=== PATIENT | male | born 1955 | race Caucasian/White ===

== ENCOUNTER 2016-08-22 14:36 | Emergency (ER) | payer BC, MEDICAID, OTHER ==
--- NOTE | 2016-08-22 14:49 | ER Document Report ---
ED Medical Screen (RME) - General Chief Complaint: Back Pain Stated Complaint: BACK PAIN Notes: pain that started that night. complaints of pain in his lower back, left flank as well and his right fingers with tingling. back surgery within the year history of kidney stones, denies any urinary symptoms or hematuria I have greeted and performed a rapid initial assessment of this patient. A comprehensive ED assessment and evaluation of the patient, analysis of test results and completion of the medical decision making process will be conducted by additional ED providers. Physical Exam - Vital signs Vitals: Temp Pulse Resp BP Pulse Ox 97.9 F 66 16 152/73 H 99 08/22/16 14:43 08/22/16 14:43 08/22/16 14:43 08/22/16 14:43 08/22/16 14:43 Course - Vital Signs Vital signs: Temp Pulse Resp BP Pulse Ox 97.9 F 66 16 152/73 H 99 08/22/16 14:43 08/22/16 14:43 08/22/16 14:43 08/22/16 14:43 08/22/16 14:43
[2016-08-22 15:37] LABS: APPEARANCE,URINE CLEAR; BILIRUBIN,URINE NEGATIVE (NEGATIVE); GLUCOSE, URINE NEGATIVE (NEGATIVE); KETONES,URINE NEGATIVE (NEGATIVE); LEUKOCYTE ESTERASE,URINE NEGATIVE (NEGATIVE); NITRITE,URINE NEGATIVE (NEGATIVE); PROTEIN,URINE NEGATIVE (NEGATIVE); URINE SPECIFIC GRAVITY 1.015; UROBILINOGEN,URINE NEGATIVE mg/dL (<2.0)
--- NOTE | 2016-08-22 18:20 | ER Document Report ---
ED Neck/Back Problem - General Mode of Arrival: Ambulatory Information source: Patient TRAVEL OUTSIDE OF THE [place] IN LAST 30 DAYS: No - HPI Patient complains to provider of: Pain, Lower back Onset: Yesterday Onset: Sudden Timing: Still present Associated symptoms: None - General Chief Complaint: Back Pain Stated Complaint: BACK PAIN Notes: Patient is a 61-year-old male presenting to the emergency department chief complaint lower back pain. Patient recently moved to town and is looking for a primary care provider. Patient states that he had metal plates placed in his back since last year and has a bad hip that needs to be operated on. Patient states that when he rolled over last night " It felt like a soft ball was stabbing him in his back." Patient states that he has recently been carrying around crank shafts. Patient also states the pain is reproducible when he lifts his leg. (INNA MELENDEZ) - Related Data Allergies/Adverse Reactions: tetanus toxoid, adsorbed Allergy (Verified 08/22/16 14:50) Past Medical History - General Information source: Patient - Social History Smoking Status: Never Smoker Chew tobacco use (# tins/day): No Frequency of alcohol use: None Drug Abuse: None Family History: Reviewed & Not Pertinent Patient has suicidal ideation: No Patient has homicidal ideation: No Renal/ Medical History: Denies: Hx Peritoneal Dialysis Past Surgical History: Reports: Hx Orthopedic Surgery - Back surgery 2016 Review of Systems - Review of Systems Constitutional: No symptoms reported EENT: No symptoms reported Cardiovascular: No symptoms reported Respiratory: No symptoms reported Gastrointestinal: No symptoms reported Genitourinary: No symptoms reported Male Genitourinary: No symptoms reported Musculoskeletal: See HPI, Back pain Skin: No symptoms reported Hematologic/Lymphatic: No symptoms reported Neurological/Psychological: No symptoms reported -: Yes All other systems reviewed and negative Physical Exam - General General appearance: Appears well, Alert - HEENT Head: Normocephalic, Atraumatic Eyes: Normal Pupils: PERRL - Respiratory Respiratory status: No respiratory distress Chest status: Nontender Breath sounds: Normal Chest palpation: Normal - Cardiovascular Rhythm: Regular Heart sounds: Normal auscultation Murmur: No - Abdominal Inspection: Normal Distension: No distension Bowel sounds: Normal Tenderness: Nontender Organomegaly: No organomegaly - Back Back: Tender - Tenderness to palpation over left flank muscles. Pain reproducable when patient lifts left leg. - Extremities General upper extremity: Normal inspection General lower extremity: Normal inspection - Neurological Neuro grossly intact: Yes Cognition: Normal Orientation: AAOx4 Rayne Coma Scale Eye Opening: Spontaneous Rayne Coma Scale Verbal: Oriented [place] Coma Scale Motor: Obeys Commands Rayne Coma Scale Total: 15 Speech: Normal - Psychological Associated symptoms: Normal affect, Normal mood - Skin Skin Temperature: Warm Skin Moisture: Dry Skin Color: Normal - Vital signs Vitals: Temp Pulse Resp BP Pulse Ox 97.9 F 66 16 152/73 H 99 08/22/16 14:43 08/22/16 14:43 08/22/16 14:43 08/22/16 14:43 08/22/16 14:43 (SUKHDEV ANTONIO) (INNA MELENDEZ) Course - Re-evaluation Re-evalutation: 08/22/16 18:30 The patient has a history of chronic back pain. He had a fusion of L3-S1 over a year ago. He had been in pain management and [facility], and had been put on [place] patches in March. He states that made him feel bad so he quit taking them. There is no evidence of prescriptions being filled since then. He states in the past he could take one [place] and it would last him all day with pain relief. He also has known kidney stones. He has been moving this area recently, and has been moving items such as crank shafts. Last night he had severe pain in his left flank region, thinking it might be a kidney stone. His urine has 1 white blood cell and 3 red blood cells. His exam shows the pain to be in the left vertebral spinal muscles just below the inferior ribs. He does note that when he lifts his left leg up it causes a sharp pain in the region of his discomfort. He has been taking Zanaflex at home for muscle relaxation, and states it caused him to sleep all night but did not help his pain. He did get a Valium from her friend yesterday. He states Flexeril makes him angry and causes him to throw coffee cups, etc. (SUKHDEV ANTONIO) - Vital Signs Vital signs: Temp Pulse Resp BP Pulse Ox 97.9 F 69 20 142/67 H 97 08/22/16 14:43 08/22/16 18:39 08/22/16 18:39 08/22/16 18:39 08/22/16 18:39 (SUKHDEV ANTONIO) (INNA MELENDEZ) - Laboratory Laboratory results interpreted by me: 08/22/16 15:00 Urine Blood SMALL H (SUKHDEV ANTONIO) (INNA MELENDEZ) Discharge - Discharge Clinical Impression: Muscle strain, Left flank pain Additional Instructions: Muscle Strain: You have strained a muscle. This often occurs with strenuous exertion, or during an injury that suddenly stretches the muscle. The seriousness of a strain varies. Some strains heal within days, others cause problems for months. X-rays cannot show a muscle strain. X-rays are taken only if symptoms suggest that a fracture could be present. The usual treatment of a muscle strain is rest and moist heat. The muscle can be used again once pain subsides. Severe strains require a special exercise and stretching program to prevent permanent stiffness and disability. Your doctor will advise you if this will be necessary. Call the doctor immediately if pain or swelling becomes severe, or if numbness or discoloration develop. TAKE THE PAIN MEDICATION PRESCRIBED. ADD MOTRIN OR ALEVE. TRY MOIST HEAT. REST. AVOID ACTIVITY THAT MAKES THE AREA HURT MORE. FOLLOW UP WITH A LOCAL MEDICAL DOCTOR FOR PRIMARY CARE AND PAIN MANAGEMENT. Prescriptions: Hydrocodone/Acetaminophen [[place] 5-325 mg Tablet] 1 tab PO Q6 #15 tablet Scribe Attestation: 08/22/16 18:29 I personally performed the services described in the documentation, reviewed and edited the documentation which was dictated to the scribe in my presence, and it accurately records my words and actions. (SUKHDEV ANTONIO) Scribe Documentation - Scribe Written by Mookie:: Inna Melendez 08/22/2016 1820 acting as scribe for :: Carmela
[2016-08-22 18:40] VITALS: BP 142/67
== END 2016-08-22 18:40 | disposition home or self-care (01) ==
LOC: ER 14:36
DX: R10.9 Unspecified abdominal pain (principal); Z98.1 Arthrodesis status; Z88.7 Allergy status to serum and vaccine
CPT/HCPCS: 72110; 81001; 87086; 99283

== ENCOUNTER 2017-03-23 13:26 | Emergency (ER) | payer SELFPAY ==
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
--- NOTE | 2017-03-23 14:44 | RADIOLOGY REPORT (SQ) ---
EXAM DESCRIPTION: SHOULDER LEFT 2 OR MORE VIEWS COMPLETED DATE/TIME: 03/23/2017 2:12 pm REASON FOR STUDY: left shoulder pain COMPARISON: None. NUMBER OF VIEWS: Three views. TECHNIQUE: Internal rotation, external rotation, and Y view images acquired of the left shoulder. LIMITATIONS: None. FINDINGS: MINERALIZATION: Normal. BONES: No acute fracture or dislocation. No worrisome bone lesions. JOINTS: No dislocation. VISUALIZED LUNGS AND RIBS: No pneumothorax. No rib fracture. SOFT TISSUES: No radiopaque foreign body. OTHER: No other significant finding. IMPRESSION: NEGATIVE STUDY OF THE LEFT SHOULDER. NO RADIOGRAPHIC EVIDENCE OF ACUTE INJURY. TECHNICAL DOCUMENTATION: JOB ID: [id number]- All Rights Reserved
[2017-03-23 15:05] VITALS: BP 160/82
== END 2017-03-23 15:05 | disposition home or self-care (01) ==
LOC: ER 13:26
DX: M25.512 Pain in left shoulder (principal); W01.0XXA Fall on same level from slipping, tripping and stumbling without subsequent striking against object, initial encounter; F17.200 Nicotine dependence, unspecified, uncomplicated
CPT/HCPCS: 99283

== ENCOUNTER 2018-01-25 14:48 | Emergency (ER) | payer MEDICARE, OTHER ==
[2018-01-25 14:56] VITALS: BP 146/66
[2018-01-25] MEDS ORDERED: CLINDAMYCIN HCL 150 MG CAPSULE PO ONE (18:49)
--- NOTE | 2018-01-25 18:56 | ER Document Report ---
ED General - General Chief Complaint: Skin Problem Stated Complaint: LEFT CALF AND ANKLE PAIN Time Seen by Provider: 01/25/18 18:22 TRAVEL OUTSIDE OF THE [place] IN LAST 30 DAYS: No - HPI Patient complains to provider of: Cellulitis Notes: Patient coming in for evaluation cellulitis. Patient states ongoing for approximately a weeks not been any antibiotics in the last 2 3 weeks. Patient states no known injury. Patient states similar to say last in the past which cleared up with antibiotics. Patient denies any fever chills nausea vomiting diarrhea. Patient has obvious redness from mid braswell down to the ankle of the left lower extremity - Related Data Allergies/Adverse Reactions: tetanus toxoid, adsorbed Allergy (Verified 01/25/18 14:49) Past Medical History - Social History Smoking Status: Current Every Day Smoker Frequency of alcohol use: None Drug Abuse: Marijuana Family History: Reviewed & Not Pertinent Patient has suicidal ideation: No Patient has homicidal ideation: No - Past Medical History Cardiac Medical History: Reports: Hx Hypertension Endocrine Medical History: Reports: Hx Diabetes Mellitus Type 2 Renal/ Medical History: Reports: Hx Kidney Stones. Denies: Hx Peritoneal Dialysis Past Surgical History: Reports: Hx Orthopedic Surgery - Back surgery 2016 - Immunizations Hx Diphtheria, Pertussis, Tetanus Vaccination: No Review of Systems - Review of Systems Constitutional: No symptoms reported EENT: No symptoms reported Cardiovascular: No symptoms reported Respiratory: No symptoms reported Gastrointestinal: No symptoms reported Genitourinary: No symptoms reported Male Genitourinary: No symptoms reported Musculoskeletal: No symptoms reported Skin: Other - I cellulitis Hematologic/Lymphatic: No symptoms reported Neurological/Psychological: No symptoms reported Physical Exam - Vital signs Vitals: Temp Pulse Resp BP Pulse Ox 98.8 F 92 18 146/66 H 97 01/25/18 14:55 01/25/18 14:55 01/25/18 14:55 01/25/18 14:55 01/25/18 14:55 Interpretation: Normal - General General appearance: Appears well, Alert - HEENT Head: Normocephalic, Atraumatic Eyes: Normal Pupils: PERRL - Respiratory Respiratory status: No respiratory distress Chest status: Nontender Breath sounds: Normal Chest palpation: Normal - Cardiovascular Rhythm: Regular Heart sounds: Normal auscultation Murmur: No - Abdominal Inspection: Normal Distension: No distension Bowel sounds: Normal Tenderness: Nontender Organomegaly: No organomegaly - Back Back: Normal, Nontender - Extremities General upper extremity: Normal inspection, Nontender, Normal color, Normal ROM , Normal temperature General lower extremity: Nontender, Normal color, Normal ROM, Normal temperature , Normal weight bearing. No: Normal inspection - Patient with erythema and warmth from the mid calf down to the ankle most on the anterior bras[place]. Patient has capillary refill and pulses distal to the erythema. No signs of obvious injury or abscess formation of the left lower extremity. Right extremity unaffected, Matthew's sign - Neurological Neuro grossly intact: Yes Cognition: Normal Orientation: AAOx4 Rayne Coma Scale Eye Opening: Spontaneous [place] Coma Scale Verbal: Oriented [place] Coma Scale Motor: Obeys Commands [place] Coma Scale Total: 15 Speech: Normal Motor strength normal: LUE, RUE, LLE, RLE Sensory: Normal - Psychological Associated symptoms: Normal affect, Normal mood - Skin Skin Temperature: Warm Skin Moisture: Dry Skin Color: Normal Course - Re-evaluation Re-evalutation: 01/25/18 23:30 1 on presentation is consistent with cellulitis. Patient had blood cultures drawn and was started on clindamycin. Patient also is concerned about his chronic pain and other issues as stated patient will have a follow-up primary care physician gave the patient's information to our social service coordinator to follow-up with. Patient agrees with plan and agrees discharge home - Vital Signs Vital signs: Temp Pulse Resp BP Pulse Ox 98.8 F 92 18 146/66 H 97 01/25/18 14:55 01/25/18 14:55 01/25/18 14:55 01/25/18 14:55 01/25/18 14:55 Discharge - Discharge Clinical Impression: Cellulitis Qualifiers: Site of cellulitis: unspecified site Qualified Code(s): L03.90 - Cellulitis, unspecified Condition: Good Disposition: HOME, SELF-CARE Instructions: Cellulitis ([facility]) Additional Instructions: Your physical examination is consistent with cellulitis of the left lower extremity. Please take antibiotics as prescribed. I will have our social service coordinator contact you so that we can establish you follow-up for further evaluation. Please take all antibiotics. We recommend taking Tylenol Motrin for pain control. Prescriptions: Clindamycin HCl [Cleocin 300 mg Capsule] 300 mg PO Q6 7 Days #28 capsule Ibuprofen [Motrin 600 Mg Tablet] 600 mg PO TID #15 tablet
[2018-01-25] MEDS ORDERED: IBUPROFEN 600 MG TABLET PO ONE (19:03)
== END 2018-01-25 19:27 | disposition home or self-care (01) ==
LOC: ER 14:48
DX: L03.116 Cellulitis of left lower limb (principal); M79.605 Pain in left leg; M25.572 Pain in left ankle and joints of left foot; F17.200 Nicotine dependence, unspecified, uncomplicated; E11.9 Type 2 diabetes mellitus without complications; I10 Essential (primary) hypertension
CPT/HCPCS: 99283; 36415; 87040; A9270 ×2

== ENCOUNTER 2018-01-28 15:20 | Emergency (ER) | payer MEDICARE, MEDICAID ==
[2018-01-28 15:26] VITALS: BP 127/68
--- NOTE | 2018-01-28 16:06 | ER Document Report ---
HPI - HPI Patient complains to provider of: Pain and increased redness to his left calf Onset: Other - Patient has had cellulitis off and on about 3 weeks Onset/Duration: Gradual Quality of pain: Achy Severity: Moderate Pain Level: 2 Context: Redness and pain to the left calf. 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 He states he has been on antibiotics now for several weeks. He came in to the emergency room again on 01 25 and got started on clindamycin. Associated Symptoms: Other - Redness and pain to the left calf Exacerbated by: Movement Relieved by: Denies Similar symptoms previously: Yes Recently seen / treated by doctor: Yes - ROS ROS below otherwise negative: Yes - CONSTITUTIONAL Constitutional: DENIES: Fever, Chills - EENT EENT: DENIES: Sore Throat, Ear Pain, Nasal Drainage-Clear, Nasal Drainage- Purulent, Congestion, Eye problems - NEURO Neurology: DENIES: Headache, Weakness, Vision blurred, Dizzinesss / Vertigo - CARDIOVASCULAR Cardiovascular: DENIES: Chest pain - RESPIRATORY Respiratory: DENIES: Trouble Breathing, Coughing - GASTROINTESTINAL Gastrointestinal: DENIES: Abdominal Pain - URINARY Urinary: DENIES: Dysuria - REPRODUCTIVE Reproductive: DENIES: :, Postmenopausal, Abnormal bleeding / discharge - MUSCULOSKELETAL Musculoskeletal: REPORTS: Extremity pain - Left calf - DERM Skin Color: [place] Skin Problems: None Past Medical History - General Information source: Patient - Social History Smoking Status: Current Every Day Smoker Cigarette use (# per day): Yes - 3-4 cigarettes a day Chew tobacco use (# tins/day): No Smoking Education Provided: Yes - 4 minutes Frequency of alcohol use: Social - Couple times a week Drug Abuse: Marijuana - Occasionally Family History: Reviewed & Not Pertinent Patient has suicidal ideation: No Patient has homicidal ideation: No - Past Medical History Cardiac Medical History: Reports: Hx Hypertension Pulmonary Medical History: Reports: None EENT Medical History: Reports: None Neurological Medical History: Reports: None Endocrine Medical History: Reports: None Renal/ Medical History: Reports: Hx Kidney Stones Malignancy Medical History: Reports None GI Medical History: Reports: None Musculoskeltal Medical History: Reports Hx Arthritis, Reports Hx Musculoskeletal Deformity, Reports Hx Musculoskeletal Trauma Skin Medical History: Reports Hx Cellulitis Psychiatric Medical History: Reports: None Traumatic Medical History: Reports: Hx Fractures - Fingers Infectious Medical History: Reports: None Past Surgical History: Reports: Hx Orthopedic Surgery - Back surgery 2016 steel plate and screws in his back - Immunizations Hx Diphtheria, Pertussis, Tetanus Vaccination: No Vertical Provider Document - CONSTITUTIONAL Agree With Documented VS: Yes Exam Limitations: No Limitations General Appearance: WD/WN, No Apparent Distress - INFECTION CONTROL TRAVEL OUTSIDE OF THE [place] IN LAST 30 DAYS: No - HEENT HEENT: Atraumatic, Normal ENT Exam, Normocephalic, PERRLA - NECK Neck: Normal Inspection - RESPIRATORY Respiratory: Breath Sounds Normal, No Respiratory Distress - CARDIOVASCULAR Cardiovascular: Regular Rate, Regular Rhythm, No Murmur - MUSCULOSKELETAL/EXTREMETIES Musculoskeletal/Extremeties: MAEW, FROM, Tender - Right calf erythema in this area much smaller area than last marking - NEURO Level of Consciousness: Awake, Alert, Appropriate Motor/Sensory: No Motor Deficit, No Sensory Deficit - DERM Integumentary: Warm, Dry, No Rash Course - Re-evaluation Re-evalutation: 01/28/18 16:28 Metal noted in the left lower extremity. The redness is actually much smaller than the last visit. Patient states he does have a little extra sting to this area but it is a redness is much smaller area. He is on clindamycin he was instructed to please take the medication as prescribed and to call the primary care doctor first thing on Monday to schedule follow-up. I will also send him home with a prescription for Keflex to ensure that he has proper coverage. Patient was instructed to use Epson salt soaks until he follows up with his doctor. - Vital Signs Vital signs: Temp Pulse Resp BP Pulse Ox 98.6 F 74 16 127/68 H 100 01/28/18 15:25 01/28/18 15:25 01/28/18 15:25 01/28/18 15:25 01/28/18 15:25 - Diagnostic Test Radiology reviewed: Image reviewed Discharge - Discharge Clinical Impression: Cellulitis Qualifiers: Site of cellulitis: extremity Site of cellulitis of extremity: lower extremity Laterality: left Qualified Code(s): L03.116 - Cellulitis of left lower limb Condition: Stable Disposition: HOME, SELF-CARE Additional Instructions: CELLULITIS: You have an infection of your skin and underlying soft tissues called cellulitis. This is due to bacteria, which can enter through any break in the skin, or even through an irritated hair follicle. Untreated, cellulitis will usually worsen. Antibiotics are required. Usually, warm packs or warm soaks, and elevation of the infected area are recommended. You should start getting better within 24 to 36 hours. Most infections respond quickly to the right medication. Follow-up care is important, however, to check for abscess (boil) formation, unsuspected foreign body, or resistant infection. If you develop fever, chills, or if the area of infection is becoming rapidly more swollen or painful, call the doctor at once. Cephalexin The antibiotic you've been prescribed is a member of the cephalosporin class. This type of antibiotic covers a wide variety of infections, including those of the skin, lungs, and urinary tract. It's useful for staph infections. This antibiotic is slightly similar to the penicillin family. In rare cases , a person who is allergic to penicillin will also be allergic to this medication. If you have had a severe allergic reaction to penicillin, and have not taken this antibiotic since that time, notify your doctor. Antibiotics which cover many germs ("broad spectrum" antibiotics) are more likely to cause diarrhea or "yeast" infections. Women prone to vaginal yeast problems may suffer an attack after taking this antibiotic. In infants, oral thrush (white spots "stuck" on the cheek) or yeast diaper rash may result. See your doctor if these problems occur. Call at once if you develop itching, hives , shortness of breath, or lightheadedness. CLINDAMYCIN: You have been given a prescription for the antibiotic clindamycin. It is often prescribed for infections in the mouth, such as dental infections or abscesses, and for skin infections due to MRSA. It's important that you take all the medication, unless instructed otherwise by your physician. Failure to complete the entire course can result in relapse of your condition. Common side effects of antibiotics include nausea, intestinal cramping, or diarrhea. Women may develop vaginal yeast infections, and babies can get yeast (thrush) in the mouth following the use of antibiotics. Contact your physician if you develop significant side effects from this medication. Allergy to this antibiotic can result in hives, wheezing, faintness, or itching. If symptoms of allergy occur, stop the medication and call the doctor. Epsom Salt Soaks Soak the wound area in a container of warm epsom salt water. If you can't get the wound area into a bucket or tanner, use a folded towel soaked in the epsom salt solution and apply to the area. Use clean hot tap water (about the temperature of a very warm bath), mixing in about one (1) teaspoon for every pint of water. Two gallon --> 16 teaspoons Epsom Salts One gallon --> 8 teaspoons Epsom Salts Two quarts --> 4 teaspoons Epsom Salts One quart --> 2 teaspoons Epsom Salts Soak the wound for about 20 minutes while gently moving it around in the water. Repeat this four (4) times a day. FOLLOW-UP CARE: If you have been referred to a physician for follow-up care, call the physician s office for an appointment as you were instructed or within the next two days. If you experience worsening or a significant change in your symptoms, notify the physician immediately or return to the Emergency Department at any time for re-evaluation. Prescriptions: Cephalexin Monohydrate [Keflex 500 mg Capsule] 500 mg PO Q6H 10 Days capsule Forms: Elevated Blood Pressure, Smoking Cessation Education Referrals: JOSE ALEJANDRO ESCOBAR MD [Primary Care Provider] - 01/29/18 (Called Dr. Escobar on the telephone Monday first thing and schedule a follow-up appointment.)
--- NOTE | 2018-01-28 16:39 | RADIOLOGY REPORT (SQ) ---
EXAM DESCRIPTION: TIBIA FIBULA LEFT COMPLETED DATE/TIME: 01/28/2018 4:31 pm REASON FOR STUDY: pain cellulitis possible metal COMPARISON: None. NUMBER OF VIEWS: Two views. TECHNIQUE: Two radiographic images acquired of the left tibia and fibula to include the knee and ank le in at least one projection. LIMITATIONS: None. FINDINGS: MINERALIZATION: Normal. BONES: No acute fracture or dislocation. No worrisome bone lesions. No significant osteophytes. SOFT TISSUES: No obvious swelling or foreign body. OTHER: No other significant finding. IMPRESSION: NEGATIVE STUDY OF THE LEFT TIBIA AND FIBULA. NO EXPLANATION FOR PAIN. TECHNICAL DOCUMENTATION: JOB ID: [id number] [employer]- All Rights Reserved Reading location - IP/workstation name: [email or web address]
== END 2018-01-28 16:42 | disposition home or self-care (01) ==
LOC: ER 15:20
DX: L03.116 Cellulitis of left lower limb (principal); M79.662 Pain in left lower leg; F17.210 Nicotine dependence, cigarettes, uncomplicated
CPT/HCPCS: 99283

== ENCOUNTER → 2018-01-30 | Outpatient (CLI) | payer MEDICARE, MEDICAID ==
--- NOTE | 2018-01-31 16:57 | XCELERA REPORT ---
[address] [address] Lower Extremity Venous Evaluation Name: TAMIKA GILLIAM Age: 63 yrs Gender: Male : 1955 Patient Status: Outpatient Patient Location: Study Date: 01/30/2018 02:03 PM Procedure: Color flow and duplex imaging of the veins of the left lower extremity as well as the right Common Femoral vein. Reason For Study: LLE PAIN Ordering Physician: DELMY COOPER Performed By: Yadira Motta Right Sided Venous Evaluation The right common femoral vein is fully compressible. Spontaneous and phasic flow is present in the right common femoral vein. Left Sided Venous Evaluation Normal vessel filling wall to wall, compression and augmentation as well as Colour flow down to the infrageniculate veins. Interpretation Summary No duplex evidence of DVT or obstruction in the left lower extremity nor in the right Common Femoral vein. : DELMY COOPER > Ruy Avila
== END ==
LOC: SP 13:35
PROVIDERS: ATTEND Physician Assistant
DX: M79.605 Pain in left leg (principal); L03.116 Cellulitis of left lower limb
CPT/HCPCS: 93971

== ENCOUNTER 2018-03-23 17:10 | Emergency (ER) | payer MEDICARE, MEDICAID ==
[2018-03-23 17:31] VITALS: BP 175/81
--- NOTE | 2018-03-23 19:12 | EKG REPORT ---
SEVERITY:- BORDERLINE ECG - SINUS RHYTHM BORDERLINE PROLONGED QT INTERVAL : Confirmed by: Jj Esteves MD 23-Mar-2018 19:11:42
== END 2018-03-23 17:41 | disposition left against medical advice (07) ==
LOC: ER 17:10
DX: Z53.21 Procedure and treatment not carried out due to patient leaving prior to being seen by health care provider (principal); R07.9 Chest pain, unspecified
CPT/HCPCS: 93005; 93010

== ENCOUNTER 2018-05-14 16:35 | Emergency (ER) | payer MEDICARE, MEDICAID ==
[2018-05-14 16:40] VITALS: BP 176/81
[2018-05-14] MEDS ORDERED: KETOROLAC TROMETHAMINE 60 MG/2 ML SDV IM ONE (17:34)
--- NOTE | 2018-05-14 18:55 | RADIOLOGY REPORT (SQ) ---
EXAM DESCRIPTION: HIP LEFT AP/LATERAL COMPLETED DATE/TIME: 05/14/2018 5:55 pm REASON FOR STUDY: left hip pain, injury COMPARISON: None. NUMBER OF VIEWS: Two views. TECHNIQUE: AP pelvis and additional frog-leg view of the left hip. LIMITATIONS: None. FINDINGS: MINERALIZATION: Normal. LEFT HIP: No fracture or dislocation. Degenerative joint changes with narrowing the joint space, sub chondral cysts, and marginal femoral head osteophytes. RIGHT HIP: No fracture or dislocation. No worrisome bone lesions. PUBIS AND ISCHIUM: No fracture. PELVIS: No fracture. SACRUM: No fracture or dislocation. No worrisome bone lesions. LOWER LUMBAR SPINE: Rods are present in the lumbar spine. SOFT TISSUES: No findings. OTHER: No other significant finding. IMPRESSION: Degenerative joint disease in the left hip. Surgical changes in the lumbar spine. TECHNICAL DOCUMENTATION: JOB ID: [id number] [email or web address]- All Rights Reserved Reading location - IP/workstation name: [email or web address]
[2018-05-14 19:46] LABS: APPEARANCE,URINE CLEAR; BILIRUBIN,URINE NEGATIVE (NEGATIVE); COLOR,URINE STRAW; GLUCOSE, URINE NEGATIVE (NEGATIVE); KETONES,URINE NEGATIVE (NEGATIVE); LEUKOCYTE ESTERASE,URINE NEGATIVE (NEGATIVE); NITRITE,URINE NEGATIVE (NEGATIVE); PROTEIN,URINE NEGATIVE (NEGATIVE); URINE SPECIFIC GRAVITY 1.005; UROBILINOGEN,URINE NEGATIVE mg/dL (<2.0)
--- NOTE | 2018-05-14 20:01 | ER Document Report ---
ED General - General Chief Complaint: Hip Pain Stated Complaint: LEFT HIP PAIN Time Seen by Provider: 05/14/18 17:24 Notes: Patient is a 63-year-old male that presents to the emergency department for chief complaint of left hip pain. Patient reports that he fell about 4 feet from a ladder several weeks ago, and has been having pain in his left hip since then, he was told he had arthritis in the past, but the pains been aggravating so he decided come to the emergency department. He currently rates his pain as a 5 out of 10, worse with ambulation, and moving the left hip, he is able to ambulate however, no radiation of pain, he has not taken any medications that have helped with the pain other than his prescribed Requip. He also felt a bulging on the left side, is concerned about developing another hernia, he states he has a hernia on the right, and that he thinks he had now has one on the left. With the pain radiating down into his testicles. He had some dysuria difficulty urinating, he reports a history of BPH. Past Medical History: Osteoarthritis Past Surgical History: Back surgery Social History: Admits to smoking cigarettes, denies alcohol or drug use Family History: Reviewed and noncontributory for presenting illness Allergies: Reviewed, see documented allergy list. REVIEW OF SYSTEMS: Unless otherwise stated in this report the patient's positive and negative responses for review of systems for constitutional, eyes, ENT, cardiovascular, respiratory, gastrointestinal, neurological, genitourinary, musculoskeletal, and integumentary systems and related systems to the presenting problem are either as stated in the HPI or were not pertinent or were negative for the symptoms and/or complaints related to the presenting medical problem. PHYSICAL EXAMINATION: Vital signs reviewed, nursing noted reviewed. GENERAL: Well-appearing, well-nourished and in no acute distress. HEAD: Atraumatic, normocephalic. EYES: Eyes appear normal, extraocular movements intact, sclera anicteric, conjunctiva are normal. ENT: nares patent, oropharynx clear without exudates. Moist mucous membranes. NECK: Normal range of motion, supple without lymphadenopathy LUNGS: Breath sounds clear to auscultation bilaterally and equal. No wheezes rales or rhonchi. HEART: Regular rate and rhythm without murmurs ABDOMEN: Soft, nontender, normoactive bowel sounds. No rebound, guarding, or rigidity. Patient does have 2 bilateral palpable inguinal hernias, with Valsalva, they do not enter the inguinal canal, there are palpable externally, they are reducible, only mild tenderness to palpate. EXTREMITIES: Nontender, good range of motion, no pitting or edema. Patient does have discomfort with range of motion of the left hip with internal and external rotation, no radiation down the leg. Good range of motion of the knee and ankle on the left, the rest of the patient's extremity exam is grossly unremarkable. NEUROLOGICAL: No focal neurological deficits. Moves all extremities spontaneously Motor and sensory grossly intact on exam. PSYCH: Normal mood, normal affect. SKIN: Warm, Dry, normal turgor, no rashes or lesions noted on exposed skin TRAVEL OUTSIDE OF THE [place] IN LAST 30 DAYS: No - Related Data Allergies/Adverse Reactions: tetanus toxoid, adsorbed Allergy (Verified 05/14/18 17:23) Past Medical History - Social History Smoking Status: Current Every Day Smoker Frequency of alcohol use: Heavy Drug Abuse: None Family History: Reviewed & Not Pertinent Patient has suicidal ideation: No Patient has homicidal ideation: No - Past Medical History Cardiac Medical History: Reports: Hx Hypertension Endocrine Medical History: Reports: Hx Diabetes Mellitus Type 2 Renal/ Medical History: Reports: Hx Kidney Stones. Denies: Hx Peritoneal Dialysis Musculoskeletal Medical History: Reports Hx Arthritis, Reports Hx Musculoskeletal Deformity, Reports Hx Musculoskeletal Trauma Skin Medical History: Reports Hx Cellulitis Traumatic Medical History: Reports: Hx Fractures - Fingers Past Surgical History: Reports: Hx Orthopedic Surgery - Back surgery 2016 - Immunizations Hx Diphtheria, Pertussis, Tetanus Vaccination: No Physical Exam - Vital signs Vitals: Temp Pulse Resp BP Pulse Ox 98.6 F 87 16 176/81 H 98 05/14/18 16:39 05/14/18 16:39 05/14/18 16:39 05/14/18 16:39 05/14/18 16:39 Course - Re-evaluation Re-evalutation: Patient seen and examined vital signs reviewed. Laboratory data and imaging were ordered as appropriate for the patient's presenting symptoms and complaint, with consideration of any critical or life threatening conditions that may be associated with their obtained history and exam as noted above. Patient was treated with Toradol Results were reviewed when available and demonstrated x-rays of the hip demonstrated severe ostial arthritis of the left hip, likely cause of the patient's pain The patient was re-evaluated and was improved Evaluation was most consistent with inguinal hernias, and osteoporosis of the hip, discussed the patient that he needs a follow-up with a surgeon regarding hernia, his urinalysis was negative, he is given a prescription for Mobic to take for his hip pain, advised no other NSAIDs, patient was agreeable. Results were discussed with the patient at this point, after careful consideration I feel that that patient can be discharged from the emergency department, the patient was educated treatments and reasons to return to the emergency department based on their presumed diagnosis as noted above, they were advised to followup with a primary care physician in 2-3 days. Patient was agreeable to plan of care. *Note is created using voice recognition software and may contain spelling, syntax or grammatical errors. Laboratory 05/14/18 19:24 Urine Color STRAW Urine Appearance CLEAR Urine pH 7.0 Ur Specific [place] 1.005 Urine Protein NEGATIVE Urine Glucose (UA) NEGATIVE Urine Ketones NEGATIVE Urine Blood NEGATIVE Urine Nitrite NEGATIVE Urine Bilirubin NEGATIVE Urine Urobilinogen NEGATIVE Ur Leukocyte Esterase NEGATIVE Urine WBC (Auto) 2 Urine Mucus (Auto) RARE Urine Ascorbic Acid NEGATIVE Hip X-Ray 05/14/18 17:34 IMPRESSION: Degenerative joint disease in the left hip. Surgical changes in the lumbar spine. - Vital Signs Vital signs: Temp Pulse Resp BP Pulse Ox 98.6 F 87 16 176/81 H 98 05/14/18 16:39 05/14/18 16:39 05/14/18 16:39 05/14/18 16:39 05/14/18 16:39 Discharge - Discharge Clinical Impression: Hip pain Qualifiers: Laterality: left Qualified Code(s): M25.552 - Pain in left hip Inguinal hernia Qualifiers: Obstruction and gangrene presence: without obstruction or gangrene Laterality: bilateral Recurrence: not specified as recurrent Qualified Code(s): K40.20 - Bilateral inguinal hernia, without obstruction or gangrene, not specified as recurrent Condition: Stable Disposition: HOME, SELF-CARE Instructions: Arthritis ([facility]), Hernia ([facility]) Additional Instructions: Please return to the emergency department if you have any worsening, or concern of your symptoms. Please return to the emergency department if you develop chest pain, difficulty breathing, severe abdominal pain, or ongoing vomiting. Please follow-up with your primary care physician in 2-3 days and any other recommended physicians. If prescribed, take all medications as directed. If you have any questions or concerns do not hesitate to return the emergency department for evaluation. Please take the prescribed medication as directed, do not take this medication with any other anti-inflammatory such as Motrin, ibuprofen, Advil, naproxen, or Aleve. Prescriptions: Meloxicam 15 mg PO DAILY #15 tablet Referrals: ROGER SIBLEY MD [ACTIVE STAFF] - Follow up tomorrow (primary care. ) VISHAL SHANE MD [ACTIVE STAFF] - Follow up tomorrow (surgery )
== END 2018-05-14 20:09 | disposition home or self-care (01) ==
LOC: ER 16:35
DX: M25.552 Pain in left hip (principal); K40.20 Bilateral inguinal hernia, without obstruction or gangrene, not specified as recurrent; F17.210 Nicotine dependence, cigarettes, uncomplicated; I10 Essential (primary) hypertension; E11.9 Type 2 diabetes mellitus without complications; Z87.442 Personal history of urinary calculi
CPT/HCPCS: 99283; 96372; 81001; 73502; J1885

== ENCOUNTER → 2018-06-11 | Outpatient (CLI) | payer MEDICARE, MEDICAID ==
--- NOTE | 2018-06-11 17:05 | RADIOLOGY REPORT (SQ) ---
EXAM DESCRIPTION: CHEST PA/LATERAL COMPLETED DATE/TIME: 06/11/2018 4:54 pm REASON FOR STUDY: PRE-OP COMPARISON: None. EXAM PARAMETERS: NUMBER OF VIEWS: two views TECHNIQUE: Digital Frontal and Lateral radiographic views of the chest acquired. RADIATION DOSE: NA LIMITATIONS: none FINDINGS: LUNGS AND PLEURA: No opacities, masses or pneumothorax. No pleural effusion. MEDIASTINUM AND HILAR STRUCTURES: No masses or contour abnormalities. HEART AND VASCULAR STRUCTURES: Heart normal size. No evidence for failure. BONES: No acute findings. HARDWARE: None in the chest. OTHER: No other significant finding. IMPRESSION: NO SIGNIFICANT RADIOGRAPHIC FINDING IN THE CHEST. TECHNICAL DOCUMENTATION: JOB ID: [id number] [employer]- All Rights Reserved Reading location - IP/workstation name: [email or web address]
[2018-06-11 17:52] LABS: HEMATOCRIT 48.9 % (37.9-51.0); HEMOGLOBIN 16.6 g/dL (13.5-17.0); MEAN CORPUSCULAR HEMOGLOBIN 31.3 pg (27.0-33.4); MEAN CORPUSCULAR VOLUME 92 fl (80-97); PLATELET COUNT 216 10^3/uL (150-450); RED BLOOD COUNT 5.32 10^6/uL (4.35-5.55); RED CELL DISTRIBUTION WIDTH 13.1 % (11.5-14.0); WHITE BLOOD COUNT 7.4 10^3/uL (4.0-10.5)
[2018-06-11 17:53] LABS: ANION GAP 10 (5-19); BLOOD UREA NITROGEN 16 mg/dL (7-20); CALCIUM 10.1 mg/dL (8.4-10.2); CARBON DIOXIDE 32 mmol/L (22-30); CHLORIDE 101 mmol/L (98-107); GLUCOSE 103 mg/dL (75-110); POTASSIUM 5.2 mmol/L (3.6-5.0); SODIUM 143.2 mmol/L (137-145)
--- NOTE | 2018-06-11 22:00 | EKG REPORT ---
SEVERITY:- ABNORMAL ECG - NONSPECIFIC INTRAVENTRICULAR CONDUCTION DELAY PROBABLE LEFT VENTRICULAR HYPERTROPHY SINUS RHYTHM WITH SHORT [place].NO DELTA WAVES. : Confirmed by: Kandy Berman MD 11-Jun-2018 21:59:33
== END ==
LOC: OD 15:24
PROVIDERS: ATTEND Surgery
DX: Z01.810 Encounter for preprocedural cardiovascular examination (principal); Z01.812 Encounter for preprocedural laboratory examination; Z01.818 Encounter for other preprocedural examination; K40.40 Unilateral inguinal hernia, with gangrene, not specified as recurrent; I10 Essential (primary) hypertension; N40.0 Benign prostatic hyperplasia without lower urinary tract symptoms; J45.909 Unspecified asthma, uncomplicated; F32.9 Major depressive disorder, single episode, unspecified; M19.90 Unspecified osteoarthritis, unspecified site; Z97.0 Presence of artificial eye
CPT/HCPCS: 36415; 71046; 80048; 85027; 93005; 93010

== ENCOUNTER → 2018-08-07 | Outpatient (CLI) | payer MEDICARE, MEDICAID ==
--- NOTE | 2018-08-07 15:54 | RADIOLOGY REPORT (SQ) ---
EXAM DESCRIPTION: CHEST PA/LATERAL COMPLETED DATE/TIME: 08/07/2018 3:34 pm REASON FOR STUDY: PRE-OP COMPARISON: 06/11/2018 EXAM PARAMETERS: NUMBER OF VIEWS: two views TECHNIQUE: Digital Frontal and Lateral radiographic views of the chest acquired. RADIATION DOSE: NA LIMITATIONS: none FINDINGS: LUNGS AND PLEURA: No opacities, masses or pneumothorax. No pleural effusion. MEDIASTINUM AND HILAR STRUCTURES: No masses or contour abnormalities. HEART AND VASCULAR STRUCTURES: Heart normal size. No evidence for failure. BONES: No acute findings. HARDWARE: None in the chest. OTHER: No other significant finding. IMPRESSION: NO SIGNIFICANT RADIOGRAPHIC FINDING IN THE CHEST. TECHNICAL DOCUMENTATION: JOB ID: [id number] [employer]- All Rights Reserved Reading location - IP/workstation name: [email or web address]
--- NOTE | 2018-08-07 19:31 | EKG REPORT ---
SEVERITY:- ABNORMAL ECG - SINUS RHYTHM RECOMMEND REPEAT EKG SECONDARY TO BASELINE WANDER. PREVENTS ACCURATE ASSESSMENT OF ST SEGMENTS : Confirmed by: Chavez Ga 07-Aug-2018 19:29:43
== END ==
LOC: OD 14:23
PROVIDERS: ATTEND Surgery
DX: Z01.818 Encounter for other preprocedural examination (principal); K40.20 Bilateral inguinal hernia, without obstruction or gangrene, not specified as recurrent; I10 Essential (primary) hypertension; N40.0 Benign prostatic hyperplasia without lower urinary tract symptoms; Z97.0 Presence of artificial eye; J32.9 Chronic sinusitis, unspecified; F32.9 Major depressive disorder, single episode, unspecified; G25.81 Restless legs syndrome; J45.909 Unspecified asthma, uncomplicated; M19.90 Unspecified osteoarthritis, unspecified site
CPT/HCPCS: 71046; 93005; 93010

== ENCOUNTER 2018-08-24 08:26 | Day surgery (SDC) | payer MEDICARE, MEDICAID ==
[2018-08-17 12:38] LABS: ANION GAP 6 (5-19); BLOOD UREA NITROGEN 16 mg/dL (7-20); CALCIUM 9.7 mg/dL (8.4-10.2); CARBON DIOXIDE 23 mmol/L (22-30); CHLORIDE 109 mmol/L (98-107); GLUCOSE 117 mg/dL (75-110); POTASSIUM 5.8 mmol/L (3.6-5.0); SODIUM 138.1 mmol/L (137-145)
[2018-08-17 14:33] LABS: HEMATOCRIT 44.5 % (37.9-51.0); HEMOGLOBIN 15.2 g/dL (13.5-17.0); MEAN CORPUSCULAR HEMOGLOBIN 31.5 pg (27.0-33.4); MEAN CORPUSCULAR HGB CONC 34.1 g/dL (32.0-36.0); MEAN CORPUSCULAR VOLUME 92 fl (80-97); PLATELET COUNT 221 10^3/uL (150-450); RED BLOOD COUNT 4.82 10^6/uL (4.35-5.55); RED CELL DISTRIBUTION WIDTH 13.3 % (11.5-14.0); WHITE BLOOD COUNT 5.9 10^3/uL (4.0-10.5)
--- NOTE | 2018-08-17 22:58 | EKG REPORT ---
SEVERITY:- OTHERWISE NORMAL ECG - SINUS RHYTHM ST ELEV, PROBABLE NORMAL EARLY REPOL PATTERN : Confirmed by: Kandy Berman MD 17-Aug-2018 22:58:17
[~2018-08-24 08:26] MED LIST: CEFAZOLIN 2 GM/D5W RTU 2 GM/50 ML RTUPB IV PRN; IBUPROFEN 800 MG in NORMAL SALINE 250 ML IV PRN; LACTATED RINGERS 1000 ML IV PRN; LIDOCAINE 0.5% INJ-PF (5 MG/ML) 50 ML SDV SUBCUT PRN
[2018-08-24] MEDS ORDERED: CEFAZOLIN 2 GM/D5W RTU 2 GM/50 ML RTUPB IV ONE (09:47)
[2018-08-24] MEDS ORDERED: KETOROLAC TROMETHAMINE 60 MG/2 ML SDV ONE (09:50)
[2018-08-24] MEDS ORDERED: ROCURONIUM BROMIDE INJ 50 MG/5 ML VIAL IV ONE (09:53)
[2018-08-24] MEDS ORDERED: SUCCINYLCHOLINE CHLORIDE INJ 200 MG/10 ML VIAL ONE (09:53)
[2018-08-24] MEDS ORDERED: BUPIVACAINE HCL 0.25 % INJ/PF (2.5 MG/1 ML) 30 ML VIAL ONE (09:55)
[2018-08-24] MEDS ORDERED: FAMOTIDINE INJ/PF 20 MG/2 ML SDV IV ONE (12:10)
[2018-08-24 12:29] LABS: URINE AMPHETAMINES SCREEN NEGATIVE; URINE BARBITURATES SCREEN NEGATIVE; URINE BENZODIAZEPINES SCREEN NEGATIVE; URINE COCAINE SCREEN NEGATIVE; URINE MARIJUANA (THC) SCREEN NEGATIVE; URINE METHADONE SCREEN NEGATIVE; URINE PHENCYCLIDINE SCREEN NEGATIVE
[2018-08-24] MEDS ORDERED: MIDAZOLAM 2 MG/2 ML INJ ONE (12:38)
[2018-08-24] MEDS ORDERED: LIDOCAINE 2% INJ-PF (20 MG/ML) 10 ML AMPUL ONE (12:38)
[2018-08-24] MEDS ORDERED: EPHEDRINE SULFATE INJ 50 MG/1 ML AMPULE ONE (12:38)
[2018-08-24] MEDS ORDERED: DEXAMETHASONE SOD PHOSPHATE INJ 4 MG/1 ML VIAL ONE (12:38)
[2018-08-24] MEDS ORDERED: FENTANYL CITRATE INJ/PF 250 MCG/5 ML AMPULE ONE (12:38)
[2018-08-24] MEDS ORDERED: ONDANSETRON HCL INJ/PF 4 MG/2 ML SDV ONE (12:38)
[2018-08-24] MEDS ORDERED: PROPOFOL INJ 200 MG/20 ML VIAL IV ONE (12:39)
[2018-08-24] MEDS ORDERED: ACETAMINOPHEN 1,000 MG/100 ML RTUPB IV ONE (12:39)
[2018-08-24] MEDS ORDERED: HYDROMORPHONE HCL INJ/PF 2 MG/ML AMPULE ONE ×2 (12:48→16:04)
[2018-08-24] MEDS ORDERED: PROMETHAZINE HCL INJ 25 MG/1 ML VIAL IV PRN ×2 (15:10)
[2018-08-24] MEDS ORDERED: DIPHENHYDRAMINE HCL 50 MG/ML VIAL IV PRN (15:10)
[2018-08-24] MEDS ORDERED: MORPHINE SULFATE 10 MG/ML INJ IV PRN (15:10)
[2018-08-24] MEDS ORDERED: FENTANYL CITRATE INJ/PF 100 MCG/2 ML AMPUL IV PRN ×3 (15:10)
[2018-08-24] MEDS ORDERED: MEPERIDINE HCL/PF INJ 25 MG/1 ML DISP.SYRIN IV PRN (15:10)
[2018-08-24] MEDS: FENTANYL CITRATE INJ/PF 100 MCG/2 ML AMPUL ONE ×2 (15:43→15:50)
--- NOTE | 2018-08-24 16:30 | Discharge Summary ---
Discharge Summary (SDC) - Discharge Final Diagnosis: Bilateral inguinal hernias. Date of Surgery: 08/24/18 Discharge Date: 08/24/18 Condition: Stable Treatment or Instructions: Discharge home. Diet as tolerated. Activity: No lifting greater than 10 pounds x 4 weeks. [place] 10/325 mg p.o. every 6 hours as needed for pain. Okay to shower in 48 hours. No tub baths or swimming pools times 2 weeks. Follow-up with me around the surgical clinic in 7-10 days. Referrals: JOSE ALEJANDRO ESCOBAR MD [Primary Care Provider] - Discharge Diet: As Tolerated Respiratory Treatments at Home: Deep Breathing/Coughing, Incentive Spirometer Discharge Activity: No Lifting Over 10 Pounds Home Care Assistance: None Needed Report the Following to Your Physician Immediately: Shortness of Breath, Nausea, Vomiting, Increase in Pain, Fever over 101 Degrees, Unusual Bleeding, Redness, Swelling, Warmth, Increased Soreness
--- NOTE | 2018-08-24 16:45 | Operative Report ---
Nonrecallable Operative Report DATE OF SURGERY: 08/24/18 PREOPERATIVE DIAGNOSIS: Bilateral inguinal hernias POSTOPERATIVE DIAGNOSIS: Bilateral direct inguinal hernias. OPERATION: Robot-assisted laparoscopic bilateral inguinal hernia repair with mesh. SURGEON: ANTONIO HORVATH [employer] UTILITY WORKER: TAMARA BAUGH ANESTHESIA: GA TISSUE REMOVED OR ALTERED: None COMPLICATIONS: None apparent ESTIMATED BLOOD LOSS: Minimal PROCEDURE: Drains/implants: Right and left large 3 DMax inguinal hernia mesh. Procedure in detail: After informed consent was obtained, the patient was brought into the operating room and laid in the supine position. The abdomen was prepped and draped in a normal sterile fashion. A supraumbilical incision was created with a 15 blade scalpel. Dissection was carried through the subcutaneous tissue using sharp and blunt means. The linea alba fascia was incised sharply, the abdomen was entered sharply. The balloon trocar was inserted, and pneumoperitoneum was achieved. 2 8 mm right and left lateral abdominal wall robotic trochars were placed under direct laparoscopic visualization. The robot was brought over the patient and docked appropriately. I then assumed my position at the surgeon's console. Dissection was begun in the right groin. A large direct inguinal hernia defect was identified. Dissection was begun approximately 2-3 cm superior to the inguinal hernia defect. A preperitoneal dissection was undertaken using sharp dissection, blunt dissection, and electrocautery. The large direct hernia sac was reduced. The peritoneum was freed from the cord structures, taking great care not to injure the cord structures. Once the space was created, a large right-sided 3 DMax inguinal hernia mesh was placed into the preperitoneal space. It was situated over the defect. It was sutured to the abdominal wall medially and superiorly using 2-0 Vicryl suture. Once this was completed, the defect was found to be adequately covered by the mesh. The peritoneum was then closed using 2-0 V lock suture in simple running fashion. Attention was then turned to the left groin. In similar fashion, an incision was created in the peritoneum approximately 2-3 cm superior to the large direct left inguinal hernia defect. Dissection was carried out using sharp dissection, blunt dissection, and electrocautery. The hernia sac was freed from the defect. The peritoneum was freed from the cord structures, taking great care not to injure the cord structures. The large left-sided 3 DMax inguinal hernia mesh was then placed into the preperitoneal space. It was sutured to the abdominal wall medially and superiorly. The mesh was found to cover the defect adequately. After this was confirmed, the peritoneum was closed using 2-0 V lock suture in simple running fashion. The repairs were found to be in good order, the robot was undocked, and the trochars were removed. Pneumoperitoneum was at this time relieved. The supraumbilical fascia was closed using 0 Vicryl suture in [id number] fashion. The overlying skin was closed using 4-0 Vicryl Rapide suture in subcuticular fashion. Dressings were fashioned and the procedure was concluded. All sponge, instrument, and needle counts were correct x2. Condition: Stable. Tamara Baugh PA-C was scrubbed and present for the procedure. She assisted with all portions of the procedure including placement of the trochars, docking the robot, exchanging of the robotic instruments, closure of the fascia, closure of the skin.
[2018-08-24] MEDS ORDERED: HYDROCODONE/ACETAMINOPHEN 10-325 MG TABLET ONE (16:50)
[2018-08-24 18:47] VITALS: BP 159/96
== END 2018-08-24 18:40 | disposition home or self-care (01) ==
LOC: OROUT 08:26
PROVIDERS: ATTEND Surgery
DX: K40.20 Bilateral inguinal hernia, without obstruction or gangrene, not specified as recurrent (principal); I10 Essential (primary) hypertension; J44.9 Chronic obstructive pulmonary disease, unspecified; N40.0 Benign prostatic hyperplasia without lower urinary tract symptoms; F17.210 Nicotine dependence, cigarettes, uncomplicated; Z79.899 Other long term (current) drug therapy; Z79.51 Long term (current) use of inhaled steroids
CPT/HCPCS: 49650; S2900; 36415; 80048; 80307; 840; 84132; 85027; 86850; 86900; 86901; 93005; 93010; C1781; J0131; J0330; J0690; J1100; J1170; J1741; J1885; J2250; J2405; J2704; J3010; J3490; J7050; S0028

== ENCOUNTER 2018-08-26 04:17 | Emergency (ER) | payer MEDICARE, MEDICAID ==
--- NOTE | 2018-08-26 05:51 | ER Document Report ---
ED Medical Screen (RME) - General Chief Complaint: Abdominal Distention Stated Complaint: POST OP PROBLEM Time Seen by Provider: 08/26/18 05:01 Primary Care Provider: JOSE ALEJANDRO ESCOBAR MD [Primary Care Provider] - Follow up as needed Mode of Arrival: Ambulatory Information source: Patient Notes: Patient is a 63-year-old male who presents the emergency department with a bdominal distention after having a hernia repair done 3 days ago. Patient reports it was done outpatient by Dr. Delgado. He denies any nausea, vomiting or diarrhea. Reports one normal bowel movement after the surgery. Reports he is not passing as much gas as usual. He states he has a normal appetite however he has been having increasing distention in his abdomen. Order was placed for an acute abdomen series. Exam: Multiple lap sites to abdomen, mild distention noted. I have greeted and performed a rapid initial assessment of this patient. A comprehensive ED assessment and evaluation of the patient, analysis of test results and completion of the medical decision making process will be conducted by additional ED providers. Dictation of this chart was performed using voice recognition software; therefore, there may be some unintended grammatical errors. TRAVEL OUTSIDE OF THE [place] IN LAST 30 DAYS: No - Related Data Allergies/Adverse Reactions: tetanus toxoid, adsorbed Allergy (Verified 08/24/18 10:27) Past Medical History - Past Medical History Cardiac Medical History: Reports: Hx Hypertension Denies: Hx Coronary Artery Disease, Hx Heart Attack Pulmonary Medical History: Reports: Hx Asthma Denies: Hx Bronchitis, Hx COPD, Hx Pneumonia Neurological Medical History: Denies: Hx Cerebrovascular Accident, Hx Seizures Endocrine Medical History: Reports: Hx Diabetes Mellitus Type 2 Renal/ Medical History: Reports: Hx Kidney Stones. Denies: Hx Peritoneal Dialysis Musculoskeltal Medical History: Reports Hx Arthritis, Reports Hx Musculoskeletal Deformity, Reports Hx Musculoskeletal Trauma Skin Medical History: Reports Hx Cellulitis Traumatic Medical History: Reports: Hx Fractures - Fingers Past Surgical History: Reports: Hx Orthopedic Surgery - Back surgery 2016 - Immunizations Hx Diphtheria, Pertussis, Tetanus Vaccination: No - ALLERGY TO TETANUS VACCINE History of Influenza Vaccine for 04/2017 - 09/2017 Season: Yes Influenza Administration Date for 04/2017 - 09/2017 Season: 04/23/18 Physical Exam - Vital signs Vitals: Temp Pulse Resp BP Pulse Ox 97.8 F 62 16 175/72 H 97 08/26/18 04:20 08/26/18 04:20 08/26/18 04:20 08/26/18 04:20 08/26/18 04:20 Course - Vital Signs Vital signs: Temp Pulse Resp BP Pulse Ox 97.8 F 62 16 175/72 H 97 08/26/18 04:20 08/26/18 04:20 08/26/18 04:20 08/26/18 04:20 08/26/18 04:20 Doctor's Discharge - Discharge Referrals: JOSE ALEJANDRO ESCOBAR MD [Primary Care Provider] - Follow up as needed
--- NOTE | 2018-08-26 06:10 | RADIOLOGY REPORT (SQ) ---
CLINICAL HISTORY: post op pain, eval for sbo vs constipation COMPARISON: None. TECHNIQUE: XR ABDOMEN SUPINE AND ERECT WITH CHEST (ABD ACUTE SERIES) 08/26/2018 5:02 AM MOBILITY MANAGER FINDINGS: There is large amount of stool throughout the colon. Extensive lower lumbar fusion was performed. There are no abnormal radiopaque foreign bodies or abnormal calcifications. Osseous structures are grossly unremarkable. There is right upper quadrant free air. The heart is normal in size. Lungs are clear. IMPRESSION: Constipation. Pneumoperitoneum. This is likely postoperative.
[2018-08-26] MEDS ORDERED: DOCUSATE SODIUM 100 MG CAPSULE PO ONE (06:58)
--- NOTE | 2018-08-26 06:58 | ER Document Report ---
ED General - General Chief Complaint: Abdominal Distention Stated Complaint: POST OP PROBLEM Time Seen by Provider: 08/26/18 05:01 Primary Care Provider: JOSE ALEJANDRO ESCOBAR MD [Primary Care Provider] - Follow up as needed Mode of Arrival: Ambulatory Notes: 63-year-old male to the emergency department for evaluation of abdominal bloating. Patient had surgery on Monday for bilateral inguinal hernia repair with Dr. Delgado. Denies any abdominal pain, fever, swelling, shortness of breath or other issues at this time. Passing gas. Has not had a bowel movement yet. No problems urinating. Patient states that he is worried that he feels a little more bloated and looks a little bloated around the surgical incision site but no active bleeding, fever, oozing or other issues. TRAVEL OUTSIDE OF THE [place] IN LAST 30 DAYS: No - HPI Onset: Just prior to arrival - Related Data Allergies/Adverse Reactions: tetanus toxoid, adsorbed Allergy (Verified 08/24/18 10:27) Past Medical History - General Information source: Patient - Social History Smoking Status: Current Every Day Smoker Frequency of alcohol use: None Drug Abuse: None Family History: Reviewed & Not Pertinent Patient has suicidal ideation: No Patient has homicidal ideation: No - Past Medical History Cardiac Medical History: Reports: Hx Hypertension Denies: Hx Coronary Artery Disease, Hx Heart Attack Pulmonary Medical History: Reports: Hx Asthma Denies: Hx Bronchitis, Hx COPD, Hx Pneumonia Neurological Medical History: Denies: Hx Cerebrovascular Accident, Hx Seizures Endocrine Medical History: Reports: Hx Diabetes Mellitus Type 2 Renal/ Medical History: Reports: Hx Kidney Stones. Denies: Hx Peritoneal Dialysis Musculoskeletal Medical History: Reports Hx Arthritis, Reports Hx Musculoskeletal Deformity, Reports Hx Musculoskeletal Trauma Skin Medical History: Reports Hx Cellulitis Traumatic Medical History: Reports: Hx Fractures - Fingers Past Surgical History: Reports: Hx Orthopedic Surgery - Back surgery 2016 - Immunizations Hx Diphtheria, Pertussis, Tetanus Vaccination: No - ALLERGY TO TETANUS VACCINE Hx Pneumococcal Vaccination: 04/23/18 Review of Systems - Review of Systems Notes: Constitutional: denies: Chills, Diaphoresis, Fever, Malaise, Weakness EENT: denies: Eye discharge, Blurred vision, Tearing, Double vision, Nose congestion, Nose discharge, Throat swelling, Mouth pain Cardiovascular: denies: Palpitations, Heart racing, Orthopnea, Dyspnea, Chest pain Respiratory: denies: Cough, Hurts to breathe, Wheezing, Shortness of breath Gastrointestinal: denies: Diarrhea, Nausea, Vomiting, Black stools, bright red blood in stool. Complaining of some postoperative swelling around the surgical incision site with some bloating and mild abdominal pain Genitourinary: denies: Burning, Dysuria, Discharge, Frequency, Flank pain, Hematuria Musculoskeletal: denies: Joint pain, Joint swelling, Muscle pain, Muscle stiffness, back pain Hematologic/Lymphatic: denies: Anemia, Easy bleeding, Easy bruising, Blood clots Neurological/Psychological: denies: Confusion, Dementia, Depression, Loss of consciousness Skin: No lesions, no masses, no skin breakdown, no abscesses Physical Exam - Vital signs Vitals: Temp Pulse Resp BP Pulse Ox 97.8 F 62 16 175/72 H 97 08/26/18 04:20 08/26/18 04:20 08/26/18 04:20 08/26/18 04:20 08/26/18 04:20 Interpretation: Normal - General General appearance: Appears well, Alert - HEENT Head: Normocephalic, Atraumatic Eyes: Normal Pupils: PERRL - Respiratory Respiratory status: No respiratory distress Chest status: Nontender Breath sounds: Normal Chest palpation: Normal - Cardiovascular Rhythm: Regular Heart sounds: Normal auscultation Murmur: No - Abdominal Inspection: Normal Distension: No distension Bowel sounds: Normal Tenderness: Nontender Organomegaly: No organomegaly Notes: Postoperative incision sites are clean dry and intact.. There is no signs of wound dehiscence. No signs of cellulitis. There is no significant distention. No guarding or rebound. - Back Back: Normal, Nontender - Extremities General upper extremity: Normal inspection, Nontender, Normal color, Normal ROM, Normal temperature General lower extremity: Normal inspection, Nontender, Normal color, Normal ROM, Normal temperature, Normal weight bearing. No: Matthew's sign - Neurological Neuro grossly intact: Yes Cognition: Normal Orientation: AAOx4 [place] Coma Scale Eye Opening: Spontaneous [place] Coma Scale Verbal: Oriented [place] Coma Scale Motor: Obeys Commands [place] Coma Scale Total: 15 Speech: Normal Motor strength normal: LUE, RUE, LLE, RLE Sensory: Normal - Psychological Associated symptoms: Normal affect, Normal mood - Skin Skin Temperature: Warm Skin Moisture: Dry Skin Color: Normal Course - Re-evaluation Re-evalutation: 08/26/18 06:56 Due to the fact the patient is only 36 hours postop. Patient has no fever. Not hypotensive. Denies any significant abdominal pain. Feels a little bloated but he is passing gas. X-ray shows a pneumo peritoneum however patient had laparoscopic surgery and this is consistent with what you would see that this time after surgery. At this time Dr. Mejias feels patient is comfortable to go home. I do 2. Will DC in stable condition. - Vital Signs Vital signs: Temp Pulse Resp BP Pulse Ox 97.8 F 62 16 175/72 H 97 08/26/18 04:20 08/26/18 04:20 08/26/18 04:20 08/26/18 04:20 08/26/18 04:20 Discharge - Discharge Clinical Impression: Postoperative pain, Surgical pneumoperitoneum Condition: Good Disposition: HOME, SELF-CARE Instructions: Abdominal Pain ([facility]) Additional Instructions: Most likely your symptoms are consistent with your postoperative normal course of recovery. I recommend taking Colace (docusate sodium) 1 tab in the morning and 1 tab in the evening. Drink plenty of water. You may also use MiraLAX. In the event that you develop a fever, worsening abdominal pain, worsening bloating, vomiting or other concerns please return for repeat evaluation. Follow-up with Dr. Delgado as instructed. Referrals: JOSE ALEJANDRO ESCOBAR MD [Primary Care Provider] - Follow up as needed
[2018-08-26 07:17] VITALS: BP 182/78
== END 2018-08-26 07:16 | disposition home or self-care (01) ==
LOC: ER 04:17
DX: G89.18 Other acute postprocedural pain (principal); R14.0 Abdominal distension (gaseous); F17.200 Nicotine dependence, unspecified, uncomplicated; I10 Essential (primary) hypertension; Z87.442 Personal history of urinary calculi
CPT/HCPCS: 99283; 74022; A9270

== ENCOUNTER 2018-09-05 23:11 | Emergency (ER) | payer MEDICARE, MEDICAID ==
[2018-09-05 23:31] VITALS: BP 172/73
== END 2018-09-06 01:15 | disposition left against medical advice (07) ==
LOC: ER 23:11
DX: Z53.21 Procedure and treatment not carried out due to patient leaving prior to being seen by health care provider (principal); R10.30 Lower abdominal pain, unspecified

== ENCOUNTER 2018-11-09 14:57 | Emergency (ER) | payer MEDICARE, MEDICAID ==
--- NOTE | 2018-11-09 15:24 | ER Document Report ---
ED Medical Screen (RME) - General Chief Complaint: Skin Problem Stated Complaint: POSSIBLE INFECTION Time Seen by Provider: 11/09/18 15:14 Primary Care Provider: JOSE ALEJANDRO ESCOBAR MD [Primary Care Provider] - Follow up as needed Mode of Arrival: Ambulatory Information source: Patient Notes: Patient is a 63-year-old male with past medical history of hypertension present ing to the emergency department with right arm pain and swelling. Patient reports approximately 1 week ago he had a laceration to thumb and his right wrist area. He states that he pulled a piece of metal out of the laceration to the right wrist. He states that he put superglue on the laceration of his thumb. He now presents with swelling, erythema and pain to the area. Patient reports he is allergic to the tetanus vaccine. He has not a diabetic. He is right-hand dominant. He denies any fevers or chills. Exam: Strong radial pulse, cap refill less than 3 seconds. Erythema and swelling noted in hand and wrist, erythema streaks up his arm to mid forearm. I have greeted and performed a rapid initial assessment of this patient. A comprehensive ED assessment and evaluation of the patient, analysis of test results and completion of the medical decision making process will be conducted by additional ED providers. Dictation of this chart was performed using voice recognition software; therefore, there may be some unintended grammatical errors. TRAVEL OUTSIDE OF THE [place] IN LAST 30 DAYS: No - Related Data Allergies/Adverse Reactions: tetanus toxoid, adsorbed Allergy (Verified 11/09/18 14:58) Past Medical History - Social History Frequency of alcohol use: Social Drug Abuse: None - Past Medical History Cardiac Medical History: Reports: Hx Hypertension Denies: Hx Coronary Artery Disease, Hx Heart Attack Pulmonary Medical History: Reports: Hx Asthma Denies: Hx Bronchitis, Hx COPD, Hx Pneumonia Neurological Medical History: Denies: Hx Cerebrovascular Accident, Hx Seizures Endocrine Medical History: Reports: Hx Diabetes Mellitus Type 2 Renal/ Medical History: Reports: Hx Kidney Stones. Denies: Hx Peritoneal Dialysis Musculoskeltal Medical History: Reports Hx Arthritis, Reports Hx Musculoskeletal Deformity, Reports Hx Musculoskeletal Trauma Skin Medical History: Reports Hx Cellulitis Traumatic Medical History: Reports: Hx Fractures - Fingers Past Surgical History: Reports: Hx Orthopedic Surgery - Back surgery 2016 - Immunizations Hx Diphtheria, Pertussis, Tetanus Vaccination: No - ALLERGY TO TETANUS VACCINE History of Influenza Vaccine for 04/2017 - 09/2017 Season: Yes Influenza Administration Date for 04/2017 - 09/2017 Season: 04/23/18 Physical Exam - Vital signs Vitals: Temp Pulse Resp BP Pulse Ox 98.3 F 79 20 180/70 H 99 11/09/18 15:01 11/09/18 15:01 11/09/18 15:01 11/09/18 15:01 11/09/18 15:01 Course - Vital Signs Vital signs: Temp Pulse Resp BP Pulse Ox 98.3 F 79 20 180/70 H 99 11/09/18 15:01 11/09/18 15:01 11/09/18 15:01 11/09/18 15:01 11/09/18 15:01 Doctor's Discharge - Discharge Referrals: JOSE ALEJANDRO ESCOBAR MD [Primary Care Provider] - Follow up as needed
--- NOTE | 2018-11-09 16:02 | RADIOLOGY REPORT (SQ) ---
EXAM DESCRIPTION: HAND RIGHT 3 VIEWS; WRIST RIGHT 3 VIEWS COMPLETED DATE/TIME: 11/09/2018 3:51 pm REASON FOR STUDY: eval for retained FB COMPARISON: None. EXAM PARAMETERS: NUMBER OF VIEWS: Three views. TECHNIQUE: AP, lateral and oblique radiographic images acquired of the right hand. LIMITATIONS: None. FINDINGS: MINERALIZATION: Normal. BONES: No acute fracture or dislocation. No worrisome bone lesions. JOINTS: No effusions. SOFT TISSUES: Diffuse soft tissue swelling. No foreign body. OTHER: No other significant finding. IMPRESSION: No fracture or dislocation of the right hand or wrist. There is soft tissue swelling wi thout evidence of retained radiopaque foreign body. TECHNICAL DOCUMENTATION: JOB ID: [id number] [employer]- All Rights Reserved Reading location - IP/workstation name: [email or web address]
--- NOTE | 2018-11-09 16:02 | RADIOLOGY REPORT (SQ) ---
EXAM DESCRIPTION: HAND RIGHT 3 VIEWS; WRIST RIGHT 3 VIEWS COMPLETED DATE/TIME: 11/09/2018 3:51 pm REASON FOR STUDY: eval for retained FB COMPARISON: None. EXAM PARAMETERS: NUMBER OF VIEWS: Three views. TECHNIQUE: AP, lateral and oblique radiographic images acquired of the right hand. LIMITATIONS: None. FINDINGS: MINERALIZATION: Normal. BONES: No acute fracture or dislocation. No worrisome bone lesions. JOINTS: No effusions. SOFT TISSUES: Diffuse soft tissue swelling. No foreign body. OTHER: No other significant finding. IMPRESSION: No fracture or dislocation of the right hand or wrist. There is soft tissue swelling wi thout evidence of retained radiopaque foreign body. TECHNICAL DOCUMENTATION: JOB ID: [id number] [employer]- All Rights Reserved Reading location - IP/workstation name: [email or web address]
[2018-11-09] MEDS ORDERED: CLINDAMYCIN 600 MG/D5W RTU 600 MG/50 ML RTUPB IV ONE (16:41)
[2018-11-09 17:03] LABS: ABSOLUTE EOSINOPHILS # (AUTO) 0.1 10^3/uL (0.0-0.6); ABSOLUTE LYMPHOCYTES (AUTO) 2.7 10^3/uL (0.5-4.7); ABSOLUTE NEUT (AUTO) 6.9 10^3/uL (1.7-8.2); BASOPHILS % (AUTO) 0.3 % (0-2); EOSINOPHILS % (AUTO) 0.7 % (0-6); HEMOGLOBIN 17.4 g/dL (13.5-17.0); LYMPHOCYTES % (AUTO) 25.1 % (13-45); MEAN CORPUSCULAR HEMOGLOBIN 30.9 pg (27.0-33.4); MEAN CORPUSCULAR HGB CONC 33.5 g/dL (32.0-36.0); MEAN CORPUSCULAR VOLUME 92 fl (80-97); MONOCYTES % (AUTO) 9.1 % (3-13); PLATELET COUNT 252 10^3/uL (150-450); RED BLOOD COUNT 5.62 10^6/uL (4.35-5.55); RED CELL DISTRIBUTION WIDTH 12.9 % (11.5-14.0); SEGMENTED NEUTROPHILS % (AUTO) 64.8 % (42-78); TOTAL CELLS COUNTED % (AUTO) 100 %; WHITE BLOOD COUNT 10.6 10^3/uL (4.0-10.5)
[2018-11-09] MEDS ORDERED: NORMAL SALINE 1000 ML 1,000 ML IV ONE (17:15)
[2018-11-09] MEDS ORDERED: ACETAMINOPHEN 325 MG TABLET PO ONE (17:16)
[2018-11-09] MEDS ORDERED: CLINDAMYCIN HCL 150 MG CAPSULE PO ONE (17:16)
[2018-11-09] MEDS ORDERED: KETOROLAC TROMETHAMINE INJ/PF 30 MG/1 ML SDV IV ONE (17:16)
[2018-11-09 17:23] LABS: ALANINE AMINOTRANSFERASE 69 U/L (21-72); ALBUMIN 4.4 g/dL (3.5-5.0); ALKALINE PHOSPHATASE 76 U/L (38-126); ANION GAP 7 (5-19); ASPARTATE AMINO TRANSFERASE 58 U/L (17-59); BILIRUBIN,DIRECT 0.4 mg/dL (0.0-0.4); BILIRUBIN,TOTAL 0.4 mg/dL (0.2-1.3); BLOOD UREA NITROGEN 12 mg/dL (7-20); CALCIUM 10.2 mg/dL (8.4-10.2); CARBON DIOXIDE 31 mmol/L (22-30); CHLORIDE 103 mmol/L (98-107); GLUCOSE 98 mg/dL (75-110); POTASSIUM 4.6 mmol/L (3.6-5.0); SODIUM 140.9 mmol/L (137-145); TOTAL PROTEIN 8.4 g/dL (6.3-8.2)
--- NOTE | 2018-11-09 18:13 | ER Document Report ---
ED General - General Chief Complaint: Skin Problem Stated Complaint: POSSIBLE INFECTION Time Seen by Provider: 11/09/18 15:14 Primary Care Provider: JOSE ALEJANDRO ESCOBAR MD [Primary Care Provider] - Follow up as needed Mode of Arrival: Ambulatory TRAVEL OUTSIDE OF THE [place] IN LAST 30 DAYS: No - HPI Patient complains to provider of: Skin infection Notes: Patient coming in for evaluation of skin infection. 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 Patient advised there is a history of chronic opioid abuse states a history of smoking and also states a history of multiple orthopedic surgeries. Patient was resting comfortably upon my evaluation. Patient denies any recent IV drug abuse. Patient otherwise resting comfortably. - Related Data Allergies/Adverse Reactions: tetanus toxoid, adsorbed Allergy (Verified 11/09/18 14:58) Past Medical History - General Information source: Patient - Social History Smoking Status: Current Every Day Smoker Frequency of alcohol use: Social Drug Abuse: None Family History: Reviewed & Not Pertinent Patient has suicidal ideation: No Patient has homicidal ideation: No - Past Medical History Cardiac Medical History: Reports: Hx Hypertension Denies: Hx Coronary Artery Disease, Hx Heart Attack Pulmonary Medical History: Reports: Hx Asthma Denies: Hx Bronchitis, Hx COPD, Hx Pneumonia Neurological Medical History: Denies: Hx Cerebrovascular Accident, Hx Seizures Endocrine Medical History: Reports: Hx Diabetes Mellitus Type 2 Renal/ Medical History: Reports: Hx Kidney Stones. Denies: Hx Peritoneal Dialysis Musculoskeletal Medical History: Reports Hx Arthritis, Reports Hx Musculoskeletal Deformity, Reports Hx Musculoskeletal Trauma Skin Medical History: Reports Hx Cellulitis Traumatic Medical History: Reports: Hx Fractures - Fingers Past Surgical History: Reports: Hx Orthopedic Surgery - Back surgery 2016 - Immunizations Hx Diphtheria, Pertussis, Tetanus Vaccination: No - ALLERGY TO TETANUS VACCINE Hx Pneumococcal Vaccination: 04/23/18 Review of Systems - Review of Systems Constitutional: No symptoms reported EENT: No symptoms reported Cardiovascular: No symptoms reported Respiratory: No symptoms reported Gastrointestinal: No symptoms reported Genitourinary: No symptoms reported Male Genitourinary: No symptoms reported Musculoskeletal: No symptoms reported Skin: No symptoms reported Hematologic/Lymphatic: No symptoms reported Neurological/Psychological: Other - Skin infection -: Yes All other systems reviewed and negative Physical Exam - Vital signs Vitals: Temp Pulse Resp BP Pulse Ox 98.3 F 79 20 180/70 H 99 11/09/18 15:01 11/09/18 15:01 11/09/18 15:01 11/09/18 15:01 11/09/18 15:01 Interpretation: Normal - General General appearance: Appears well, Alert - HEENT Head: Normocephalic, Atraumatic Eyes: Normal Pupils: PERRL - Respiratory Respiratory status: No respiratory distress Chest status: Nontender Breath sounds: Normal Chest palpation: Normal - Cardiovascular Rhythm: Regular Heart sounds: Normal auscultation Murmur: No - Abdominal Inspection: Normal Distension: No distension Bowel sounds: Normal Tenderness: Nontender Organomegaly: No organomegaly - Back Back: Normal, Nontender - Extremities General upper extremity: Nontender, Normal color, Normal ROM, Normal temperature. No: Normal inspection - Pulmonary associates of the right wrist to the mid forearm shows an area of erythema is warm to touch consistent with cellulitis. There is no lymphangitic changes there is no streaking past the elbow. Slight swelling of the right hand however patient with full range of motion no pain on passive or active extension or flexion General lower extremity: Normal inspection, Nontender, Normal color, Normal ROM, Normal temperature, Normal weight bearing. No: Matthew's sign - Neurological Neuro grossly intact: Yes Cognition: Normal Orientation: AAOx4 [place] Coma Scale Eye Opening: Spontaneous [place] Coma Scale Verbal: Oriented [place] Coma Scale Motor: Obeys Commands [place] Coma Scale Total: 15 Speech: Normal Motor strength normal: LUE, RUE, LLE, RLE Sensory: Normal - Psychological Associated symptoms: Normal affect, Normal mood - Skin Skin Temperature: Warm Skin Moisture: Dry Skin Color: Normal Course - Re-evaluation Re-evalutation: 11/09/18 17:36 Laboratory studies showed a slight leukocytosis however no signs of severe infection. Examination of the arm reveals cellulitis. Will give a dose of IV clindamycin and will send patient home with 2 doses of oral clindamycin - Vital Signs Vital signs: Temp Pulse Resp BP Pulse Ox 98.3 F 79 20 180/70 H 99 11/09/18 15:01 11/09/18 15:01 11/09/18 15:01 11/09/18 15:01 11/09/18 15:01 - Laboratory Result Diagrams: 11/09/18 16:40 11/09/18 16:40 Laboratory results interpreted by me: 11/09/18 11/09/18 16:40 16:40 WBC 10.6 H RBC 5.62 H Hgb 17.4 H Hct 52.0 H Carbon Dioxide 31 H Total Protein 8.4 H Discharge - Discharge Clinical Impression: Cellulitis Qualifiers: Site of cellulitis: extremity Site of cellulitis of extremity: upper extremity Laterality: right Qualified Code(s): L03.113 - Cellulitis of right upper limb Condition: Good Disposition: HOME, SELF-CARE Instructions: Cellulitis ([facility]) Additional Instructions: Your evaluation does show signs of a cellulitis of the right arm. Or a skin infection. Please take the antibiotics as prescribed return immediately to the ER if you develop a fever temperature greater than 101. Please call your phy sician and follow-up on Monday or Monday. Return to the ER if you feel like your infection is worsening. Take Tylenol and Motrin for pain control. Prescriptions: Clindamycin HCl [Cleocin 150 mg Capsule] 150 mg PO Q6 #40 capsule Referrals: JOSE ALEJANDRO ESCOBAR MD [Primary Care Provider] - Follow up in 3-5 days
[2018-11-09] MEDS ORDERED: CLINDAMYCIN HCL 150 MG CAPSULE ONE (20:12)
[2018-11-09 20:25] VITALS: BP 151/90
== END 2018-11-09 20:25 | disposition home or self-care (01) ==
LOC: ER 14:57
DX: L03.113 Cellulitis of right upper limb (principal); E11.9 Type 2 diabetes mellitus without complications; D72.829 Elevated white blood cell count, unspecified; I10 Essential (primary) hypertension; J45.909 Unspecified asthma, uncomplicated; F17.200 Nicotine dependence, unspecified, uncomplicated; Z88.7 Allergy status to serum and vaccine
CPT/HCPCS: 99283; 96375; 96365; 36415; 87040; 85025; 80053; 73130; 73110; A9270 ×2; J1885; J7030

== ENCOUNTER 2019-02-14 15:36 | Emergency (ER) | payer MEDICARE, MEDICAID ==
[2019-02-14] MEDS ORDERED: ONDANSETRON HCL INJ/PF 4 MG/2 ML SDV IV ONE (16:50)
[2019-02-14] MEDS ORDERED: FENTANYL CITRATE INJ/PF 100 MCG/2 ML AMPUL IV ONE (16:50)
--- NOTE | 2019-02-14 16:53 | ER Document Report ---
ED Medical Screen (RME) - General Chief Complaint: Possible Kidney Stone Stated Complaint: FLANK PAIN Time Seen by Provider: 02/14/19 16:46 Primary Care Provider: JOSE ALEJANDRO ESCOBAR MD [Primary Care Provider] - Follow up as needed Notes: Patient is a 64-year-old male presents to the emergency department with left flank radiating groin pain. States he does have a history of kidney stones but is unable to remember when he had his last kidney stone. States he feels as though he has very dark urine. Patient also complains of generalized nausea. Patient's denying fevers. GENERAL: Alert, interacts well. No acute distress. ABDOMEN: Soft, Non-distended. Bowel sounds present in all 4 quadrants. Generalized left CVA tenderness noted. I have greeted and performed a rapid initial assessment of this patient. A comprehensive ED assessment and evaluation of the patient, analysis of test results and completion of the medical decision making process will be conducted by additional ED providers. I have specifically instructed the patient or family members with the patient to immediately return to any nursing staff should anything change in the patient's condition or with their chief complaint. This medical record was dictated with voice recognizing software. There may be grammatical, syntax errors that are unintended. TRAVEL OUTSIDE OF THE [place] IN LAST 30 DAYS: No - Related Data Allergies/Adverse Reactions: tetanus toxoid, adsorbed Allergy (Verified 11/09/18 14:58) Past Medical History - Social History Chew tobacco use (# tins/day): No Frequency of alcohol use: None Drug Abuse: None - Past Medical History Cardiac Medical History: Reports: Hx Hypertension Denies: Hx Coronary Artery Disease, Hx Heart Attack Pulmonary Medical History: Reports: Hx Asthma Denies: Hx Bronchitis, Hx COPD, Hx Pneumonia Neurological Medical History: Denies: Hx Cerebrovascular Accident, Hx Seizures Endocrine Medical History: Reports: Hx Diabetes Mellitus Type 2 Renal/ Medical History: Reports: Hx Kidney Stones. Denies: Hx Peritoneal Dialysis Musculoskeltal Medical History: Reports Hx Arthritis, Reports Hx Musculoskeletal Deformity, Reports Hx Musculoskeletal Trauma Skin Medical History: Reports Hx Cellulitis Traumatic Medical History: Reports: Hx Fractures - Fingers Past Surgical History: Reports: Hx Orthopedic Surgery - Back surgery 2016 - Immunizations Hx Diphtheria, Pertussis, Tetanus Vaccination: No - ALLERGY TO TETANUS VACCINE History of Influenza Vaccine for 04/2017 - 09/2017 Season: Yes Influenza Administration Date for 04/2017 - 09/2017 Season: 04/23/18 Physical Exam - Vital signs Vitals: Temp Pulse Resp BP Pulse Ox 97.9 F 95 24 H 145/57 H 98 02/14/19 15:51 02/14/19 15:51 02/14/19 15:51 02/14/19 15:51 02/14/19 15:51 Course - Vital Signs Vital signs: Temp Pulse Resp BP Pulse Ox 97.9 F 95 24 H 145/57 H 98 02/14/19 15:51 02/14/19 15:51 02/14/19 15:51 02/14/19 15:51 02/14/19 15:51 Doctor's Discharge - Discharge Referrals: JOSE ALEJANDRO ESCOBAR MD [Primary Care Provider] - Follow up as needed
--- NOTE | 2019-02-14 17:27 | RADIOLOGY REPORT (SQ) ---
EXAM DESCRIPTION: CT ABD/PELVIS NO ORAL OR IV COMPLETED DATE/TIME: 02/14/2019 5:14 pm REASON FOR STUDY: left flank pain h/o stones COMPARISON: None. TECHNIQUE: CT scan of the abdomen and pelvis performed without intravenous or oral contrast. Images reviewed with lung, soft tissue, and bone windows. Reconstructed coronal and sagittal MPR images revi ewed. All images stored on PACS. All CT scanners at this facility use dose modulation, iterative reconstruction, and/or weight based d osing when appropriate to reduce radiation dose to as low as reasonably achievable (ALARA). [facility]: Dose Right [facility]: CareDose [facility]: Dose Right [facility]: Teradose 4D [facility]: Smart Aquiris RADIATION DOSE: CT Rad equipment meets quality standard of care and radiation dose reduction techniq ues were employed. CTDIvol: 6.2 mGy. DLP: 313 mGy-cm.mGy. LIMITATIONS: None. FINDINGS: LOWER CHEST: No significant findings. No nodules or infiltrates. NON-CONTRASTED LIVER, SPLEEN, ADRENALS: Evaluation limited by lack of IV contrast. No identified sign ificant masses. PANCREAS: No masses. No peripancreatic inflammatory changes. GALLBLADDER: No identified stones by CT criteria. No inflammatory changes to suggest cholecystitis. RIGHT KIDNEY AND URETER: No suspicious masses. Assessment limited by lack of IV contrast. Nonobstru cting lower calyceal calculus. No hydronephrosis or hydroureter. LEFT KIDNEY AND URETER: No suspicious masses. Assessment limited by lack of IV contrast. Nonobstruc ting lower calyceal calculus. No hydronephrosis or hydroureter. AORTA AND RETROPERITONEUM: No aneurysm. No retroperitoneal masses or adenopathy. BOWEL AND PERITONEAL CAVITY: No obvious masses or inflammatory changes. No free fluid. APPENDIX: Normal. PELVIS, BLADDER, AND ABDOMINAL WALL:No abnormal masses. No free fluid. Bladder normal. BONES: Posterior rods from L3-S1 with screws through the pedicles OTHER: No other significant finding. IMPRESSION: Nonobstructing intrarenal calculus on each side. No acute findings in the abdomen or pe lvis. COMMENT: Quality ID # [id number]: Final reports with documentation of one or more dose reduction techniques (e.g., Automated exposure control, adjustment of the mA and/or kV according to patient size, use of iterative reconstruction technique) TECHNICAL DOCUMENTATION: JOB ID: [id number] [employer]- All Rights Reserved Reading location - IP/workstation name: [email or web address]
[2019-02-14 18:26] LABS: APPEARANCE,URINE CLEAR; BILIRUBIN,URINE NEGATIVE (NEGATIVE); COLOR,URINE YELLOW; GLUCOSE, URINE NEGATIVE (NEGATIVE); KETONES,URINE NEGATIVE (NEGATIVE); LEUKOCYTE ESTERASE,URINE NEGATIVE (NEGATIVE); NITRITE,URINE NEGATIVE (NEGATIVE); PROTEIN,URINE NEGATIVE (NEGATIVE); URINE SPECIFIC GRAVITY 1.006; UROBILINOGEN,URINE NEGATIVE mg/dL (<2.0)
[2019-02-14] MEDS ORDERED: FENTANYL CITRATE INJ/PF 100 MCG/2 ML AMPUL IM ONE (18:35)
[2019-02-14] MEDS ORDERED: ONDANSETRON HCL INJ/PF 4 MG/2 ML SDV IM ONE (18:36)
[2019-02-14 19:39] LABS: ABSOLUTE EOSINOPHILS # (AUTO) 0.1 10^3/uL (0.0-0.6); BASOPHILS % (AUTO) 0.2 % (0-2); TOTAL CELLS COUNTED % (AUTO) 100 %
[2019-02-14 19:45] LABS: ABSOLUTE MONOCYTES (AUTO) 0.3 10^3/uL (0.1-1.4); ABSOLUTE NEUT (AUTO) 3.8 10^3/uL (1.7-8.2); EOSINOPHILS % (AUTO) 1.3 % (0-6); HEMATOCRIT 46.3 % (37.9-51.0); HEMOGLOBIN 15.3 g/dL (13.5-17.0); LYMPHOCYTES % (AUTO) 41.1 % (13-45); MEAN CORPUSCULAR HEMOGLOBIN 30.7 pg (27.0-33.4); MEAN CORPUSCULAR HGB CONC 33.2 g/dL (32.0-36.0); MEAN CORPUSCULAR VOLUME 92 fl (80-97); MONOCYTES % (AUTO) 4.7 % (3-13); PLATELET COUNT 241 10^3/uL (150-450); SEGMENTED NEUTROPHILS % (AUTO) 52.7 % (42-78); WHITE BLOOD COUNT 7.2 10^3/uL (4.0-10.5)
[2019-02-14 19:59] LABS: ALANINE AMINOTRANSFERASE 67 U/L (21-72); ALBUMIN 3.7 g/dL (3.5-5.0); ALKALINE PHOSPHATASE 68 U/L (38-126); ANION GAP 7 (5-19); ASPARTATE AMINO TRANSFERASE 57 U/L (17-59); BILIRUBIN,DIRECT 0.3 mg/dL (0.0-0.4); BILIRUBIN,TOTAL 0.3 mg/dL (0.2-1.3); BLOOD UREA NITROGEN 12 mg/dL (7-20); CALCIUM 9.3 mg/dL (8.4-10.2); CARBON DIOXIDE 27 mmol/L (22-30); CHLORIDE 108 mmol/L (98-107); GLUCOSE 115 mg/dL (75-110); POTASSIUM 4.2 mmol/L (3.6-5.0); TOTAL PROTEIN 6.9 g/dL (6.3-8.2)
[2019-02-14] MEDS ORDERED: KETOROLAC TROMETHAMINE 60 MG/2 ML SDV IM ONE (20:07)
[2019-02-14] MEDS ORDERED: OXYCODONE-ACETAMINOPHEN 5-325 MG TABLET PO ONE (20:07)
--- NOTE | 2019-02-14 21:05 | ER Document Report ---
ED General - General Chief Complaint: Possible Kidney Stone Stated Complaint: FLANK PAIN Time Seen by Provider: 02/14/19 16:46 Primary Care Provider: JOSE ALEJANDRO ESCOBAR MD [Primary Care Provider] - Follow up tomorrow TRAVEL OUTSIDE OF THE [place] IN LAST 30 DAYS: No - HPI Notes: 64-year-old male to the emergency department with complaints of left flank pain that radiates down into his groin and into the left testicle that began 5 days ago. Initially he stated that his pain was just in his flank and down into the groin but neglected to state that it included his testicle. He admits that he has been seeing blood in his urine. He states that this feels a lot like a kidney stone that he has had in the past. He states that he has not had a kidney stone in a long time. He states that yesterday he was straining some of his urine and was seeing pebble like substances in his urine. He states that he had nearly beat the kidney stone but today his pain got worse. He also states that he had nausea. He also reports an insect bite to the back of his left lower extremity that began 2 days prior to his kidney stones starting. He states that he thought it was just a regular spider bite but the redness has grown in the area and is a little bit more tender. He denies any fevers, chills, chest pain, shortness of breath, headache. He does admit that he is to be an IV drug user. He states he no longer uses and has not for 20 years. - Related Data Allergies/Adverse Reactions: tetanus toxoid, adsorbed Allergy (Verified 11/09/18 14:58) Past Medical History - Social History Smoking Status: Current Every Day Smoker Chew tobacco use (# tins/day): No Frequency of alcohol use: None Drug Abuse: None, Other - History of IV drug abuse Family History: Reviewed & Not Pertinent Patient has suicidal ideation: No Patient has homicidal ideation: No - Past Medical History Cardiac Medical History: Reports: Hx Hypertension Denies: Hx Coronary Artery Disease, Hx Heart Attack Pulmonary Medical History: Reports: Hx Asthma Denies: Hx Bronchitis, Hx COPD, Hx Pneumonia Neurological Medical History: Denies: Hx Cerebrovascular Accident, Hx Seizures Endocrine Medical History: Reports: Hx Diabetes Mellitus Type 2 Renal/ Medical History: Reports: Hx Kidney Stones. Denies: Hx Peritoneal Dialysis Musculoskeletal Medical History: Reports Hx Arthritis, Reports Hx Musculoskeletal Deformity, Reports Hx Musculoskeletal Trauma Skin Medical History: Reports Hx Cellulitis Traumatic Medical History: Reports: Hx Fractures - Fingers Past Surgical History: Reports: Hx Orthopedic Surgery - Back surgery 2016 - Immunizations Hx Diphtheria, Pertussis, Tetanus Vaccination: No - ALLERGY TO TETANUS VACCINE Hx Pneumococcal Vaccination: 04/23/18 Review of Systems - Review of Systems Constitutional: denies: Chills, Fever EENT: No symptoms reported Cardiovascular: denies: Chest pain, Dyspnea, Dizziness, Lightheaded Respiratory: denies: Cough, Short of breath Gastrointestinal: Abdominal pain, Nausea. denies: Diarrhea, Vomiting, Blood in vomit Genitourinary: Flank pain, Hematuria, Pain Male Genitourinary: Testicular pain Musculoskeletal: No symptoms reported Skin: Change in color - Insect bite to the back of the left calf Hematologic/Lymphatic: No symptoms reported Neurological/Psychological: No symptoms reported -: Yes All other systems reviewed and negative Physical Exam - Vital signs Vitals: Temp Pulse Resp BP Pulse Ox 97.9 F 95 24 H 145/57 H 98 02/14/19 15:51 02/14/19 15:51 02/14/19 15:51 02/14/19 15:51 02/14/19 15:51 Interpretation: Hypertensive - General General appearance: Alert In distress: Mild Notes: mild pain distress - HEENT Head: Normocephalic, Atraumatic Eyes: Normal Pupils: PERRL - Respiratory Respiratory status: No respiratory distress Chest status: Nontender Breath sounds: Normal Chest palpation: Normal - Cardiovascular Rhythm: Regular Heart sounds: Normal auscultation Murmur: No - Abdominal Inspection: Normal Distension: No distension Bowel sounds: Normal Tenderness: Tender - Mild tenderness to palpation over the left upper quadrant and down to the left groin. No: McBurney's point, Perez's sign, Guarding, Rebound Organomegaly: No organomegaly - there is mild tenderness to palpation over the CVA region of the left side - Back Back: CVA tenderness. No: Vertebra tenderness - Extremities General upper extremity: Normal ROM, Normal strength General lower extremity: Normal ROM, Normal strength Calf: Other - To the dorsum of the left calf there is a noted insect bite with erythema and induration surrounding it. There is no evidence for abscess. There is no drainage. There is no streaking lymphangitis. It is mildly tender to palpation. - Neurological Neuro grossly intact: Yes Cognition: Normal Orientation: AAOx4 [place] Coma Scale Eye Opening: Spontaneous [place] Coma Scale Verbal: Oriented [place] Coma Scale Motor: Obeys Commands [place] Coma Scale Total: 15 Speech: Normal Motor strength normal: LUE, RUE, LLE, RLE Sensory: Normal - Psychological Associated symptoms: Normal affect, Normal mood - Skin Skin Temperature: Warm Skin Moisture: Dry Skin Color: Normal Course - Re-evaluation Re-evalutation: Impression: Nephrolithiasis, left flank pain, infected insect bite, left testicular pain. Labs as well as imaging are all reassuring. Patient has had good pain control with pain meds and also good nausea control with antiemetics. Suspect given his history that he has been passing small bits of stone. He does not have any obstructive uropathy. He is tolerating p.o. challenge here in the emergency department. We will plan to discharge home and have him follow-up with primary care. Encouraged to return if he has intractable vomiting, fevers, chills, chest pain, shortness of breath, passing out or any other concerns. Patient agrees with the plan. Laboratory 02/14/19 02/14/19 02/14/19 17:10 19:00 19:00 WBC 7.2 RBC 5.00 Hgb 15.3 Hct 46.3 MCV 92 MCH 30.7 MCHC 33.2 RDW 14.0 Plt Count 241 Seg Neutrophils % 52.7 Lymphocytes % 41.1 Monocytes % 4.7 Eosinophils % 1.3 Basophils % 0.2 Absolute Neutrophils 3.8 Absolute Lymphocytes 3.0 Absolute Monocytes 0.3 Absolute Eosinophils 0.1 Absolute Basophils 0.0 Sodium 141.8 Potassium 4.2 Chloride 108 H Carbon Dioxide 27 Anion Gap 7 BUN 12 Creatinine 0.68 Est GFR ( Amer) > 60 Est GFR (Non-Af Amer) > 60 Glucose 115 H Calcium 9.3 Total Bilirubin 0.3 Direct Bilirubin 0.3 Neonat Total Bilirubin Not Reportable Neonat Direct Bilirubin Not Reportable Neonat Indirect Bili Not Reportable AST 57 ALT 67 Alkaline Phosphatase 68 Total Protein 6.9 Albumin 3.7 Urine Color YELLOW Urine Appearance CLEAR Urine pH 7.0 Ur Specific [place] 1.006 Urine Protein NEGATIVE Urine Glucose (UA) NEGATIVE Urine Ketones NEGATIVE Urine Blood NEGATIVE Urine Nitrite NEGATIVE Urine Bilirubin NEGATIVE Urine Urobilinogen NEGATIVE Ur Leukocyte Esterase NEGATIVE Urine WBC (Auto) 1 Urine RBC (Auto) 2 Urine Mucus (Auto) RARE Urine Ascorbic Acid NEGATIVE Abdomen/Pelvis CT 02/14/19 16:50 IMPRESSION: Nonobstructing intrarenal calculus on each side. No acute findings in the abdomen or pelvis. Scrotum Ultrasound 02/14/19 21:01 IMPRESSION: 1. Normal testicular ultrasound. - Vital Signs Vital signs: Temp Pulse Resp BP Pulse Ox 97.6 F 57 L 18 175/81 H 100 02/14/19 23:30 02/14/19 23:30 02/14/19 23:30 02/14/19 23:30 02/14/19 23:30 - Laboratory Result Diagrams: 02/14/19 19:00 02/14/19 19:00 Laboratory results interpreted by me: 02/14/19 19:00 Chloride 108 H Glucose 115 H - Diagnostic Test Radiology reviewed: Image reviewed, Reports reviewed Discharge - Discharge Clinical Impression: Flank pain, Nephrolithiasis, Left testicular pain Insect bite, infected Qualifiers: Encounter type: initial encounter Qualified Code(s): W57.XXXA - Bitten or stung by nonvenomous insect and other nonvenomous arthropods, initial encounter Condition: Stable Disposition: HOME, SELF-CARE Instructions: Flank Pain ([facility]), Swollen Insect Bite or Sting ([facility]) Additional Instructions: TAKE MEDICINES PRESCRIBED. PUSH FLUIDS. APPLY WARM COMPRESSES. FOLLOW UP W THE [facility] BY MONDAY. RETUNR IF INTRACTABLE VOMITING, FEVERS, PASSING OUT, CHEST PAIN. Prescriptions: Ondansetron [Zofran Odt 4 mg Tablet] 1 - 2 tab PO Q4H PRN #15 tab.rapdis PRN Reason: For Nausea/Vomiting Oxycodone HCl/Acetaminophen [Percocet 5-325 mg Tablet] 1 - 2 tab PO Q4H PRN #15 tablet PRN Reason: Sulfamethoxazole/Trimethoprim [Bactrim Ds Tablet] 1 each PO BID #20 tablet Referrals: JOSE ALEJANDRO ESCOBAR MD [Primary Care Provider] - Follow up tomorrow
--- NOTE | 2019-02-14 21:49 | RADIOLOGY REPORT (SQ) ---
EXAM DESCRIPTION: [facility]: US SCROTUM CLINICAL HISTORY: 64 years Male; LEFT TESTICULAR PAIN TECHNIQUE: Hallman-scale, color, and spectral Doppler images were obtained of the testes and scrotum. COMPARISON: None FINDINGS: Right testicle: 3.9 x 3.1 x 1.9 cm. Testicular echogenicity is normal with no focal lesion. Testicular vascular flow is normal. Right epididymis: 8 x 12 x 17 mm. No hyperemia. No hydrocele Left testicle: 3.3 x 2.8 x 1.7 cm. Testicular echogenicity is normal with no focal lesion. Testicular vascular flow is normal. Left epididymis: 11 x 17 x 6 mm with an incidental 5 mm cyst. No hyperemia. No hydrocele IMPRESSION: 1. Normal testicular ultrasound.
[2019-02-14 23:31] VITALS: BP 175/81
== END 2019-02-14 23:37 | disposition home or self-care (01) ==
LOC: ER 15:36
DX: N20.0 Calculus of kidney (principal); N50.812 Left testicular pain; R10.9 Unspecified abdominal pain; R10.30 Lower abdominal pain, unspecified; R10.32 Left lower quadrant pain; F17.200 Nicotine dependence, unspecified, uncomplicated; I10 Essential (primary) hypertension; J45.909 Unspecified asthma, uncomplicated; E11.9 Type 2 diabetes mellitus without complications; W57.XXXA Bitten or stung by nonvenomous insect and other nonvenomous arthropods, initial encounter
CPT/HCPCS: 99284; 96372; 36415; 85025; 80053; 81001; 76870; 93976; 74176; J1885; J3010; A9270; J2405

== ENCOUNTER 2019-02-18 19:31 | Emergency (ER) | payer MEDICARE, MEDICAID ==
--- NOTE | 2019-02-18 22:12 | ER Document Report ---
HPI - HPI Patient complains to provider of: left flank pain Time Seen by Provider: 02/18/19 22:08 Onset/Duration: Gradual, Persistent Quality of pain: Achy, Sharp Severity: Moderate Pain Level: 4 Context: This is a 64 yr old male pt with the listed pmh, presenting with an acute exacerbation of their chronic bilat L> R lower back pain. Patient states that this has been ongoing for the last several days. was seen here 4 days ago for the same and had a neg ct/testicular us and labs other than chronic unchanged lumbar hardware and bilat nonobstructing renal stones. was dc'd with 15 percocet. has since ran out. f/u with pcp-serafin who told him to take motrin and flomax and sx care. states sx are no better so he came back in for re-eval. states he fell over a month ago from a low height accidentally and wasn't sure if some of his hardware from his remote lumbar spinal surgery had come loose as he has had intermittent pain since. denies any urinary sx currently. he was also dc'd on bactrim 4 days ago here to cover for possible septic stone vs pyelo it appears. he has been compliant with this. states the percocet was controlling his pain well until he ran out. he is also prescribed diclofenac and has also been taking motrin prescribed by his pcp. his bp was a little elevated here today and he attributes it to his pain-denies htn sx. no other fall or trauma. states he tried to get his pcp to refill his zanaflex but he wouldn't do it as he wanted him to try the motrin and flomax regimen first apparently per pt. pt feels like it may be musculoskeletal as he has done more physical work recently and feels like he may have pulled something and feels like a muscle relaxer would help the most as it has before in the past when his chronic back pain has flared up. Patient states that the pain is a sharp achy 8 out of 10 pain with radiation down both legs intermittently for a while, worse recently. Patient states that movement and palpation make the pain worse and rest makes the pain better. Patient denies any numbness, tingling, weakness, change of bowel or bladder habits or signs or symptoms of saddle anesthesia. Patient states that secondary to the pain, they have come to the emergency department. No other spinal surgeries. No other falls or trauma. no IV drug use. otc meds not helping much. no hx of diabetes or asthma. no other recent abx or steroids. no fevers, uti sx, or genitalia complaints currently. pt able to walk. Patient denies all o ther complaints at this time. also of note, he was given toradol 60mg IM in route via ems with minimal relief. Similar symptoms previously: Yes Recently seen / treated by doctor: Yes - ROS Systems Reviewed and Negative: Yes All other systems reviewed and negative - to include 10 systems, unless mentioned in the hpi - REPRODUCTIVE Reproductive: DENIES: : - DERM Skin Color: Normal Past Medical History - General Information source: Patient - Social History Smoking Status: Current Every Day Smoker Frequency of alcohol use: Occasional Drug Abuse: Marijuana Family History: Reviewed & Not Pertinent Patient has suicidal ideation: No Patient has homicidal ideation: No - Past Medical History Cardiac Medical History: Reports: Hx Hypertension Denies: Hx Atrial Fibrillation, Hx Congestive Heart Failure, Hx Coronary Artery Disease, Hx Heart Attack, Hx Hypercholesterolemia, Hx Pulmonary Embolism Pulmonary Medical History: Denies: Hx Bronchitis, Hx COPD, Hx Pneumonia Neurological Medical History: Denies: Hx Cerebrovascular Accident, Hx Migraine, Hx Seizures Endocrine Medical History: Denies: Hx Diabetes Mellitus Type 1, Hx Diabetes Mellitus Type 2, Hx Hyperthyroidism, Hx Hypothyroidism Renal/ Medical History: Reports: Hx Kidney Stones. Denies: Hx End Stage Renal Disease, Hx Peritoneal Dialysis Malignancy Medical History: Reports None GI Medical History: Denies: Hx Cirrhosis, Hx Gastritis, Hx Gastroesophageal Reflux Disease, Hx Hepatitis, Hx Liver Failure, Hx Pancreatitis, Hx Ulcer Musculoskeletal Medical History: Reports Hx Arthritis Traumatic Medical History: Reports: Hx Fractures - Fingers Past Surgical History: Reports: Hx Orthopedic Surgery - Back surgery 2016- with posterior fixation in lower lumbar spine-stable - Immunizations Hx Diphtheria, Pertussis, Tetanus Vaccination: No - ALLERGY TO TETANUS VACCINE Hx Pneumococcal Vaccination: 04/23/18 Vertical Provider Document - CONSTITUTIONAL Notes: Vital signs: All vital signs were reviewed per nursing notes. Gen. Appearance: Nontoxic, patient of stated age. pleasant, middle aged white male, appears uncomfortable, standing, holding left low back hunched over when i enter the room, appears in pain with left hip flexion/extension when not distracted. not so much when distracted however, smiling, speaking in full sentences, in no sign of resp distress, nontoxic, appears uncomfortable but polite. Psychiatric: Alert and oriented x3, pleasant and very conversational, normal affect. Skin: Warm, pink, dry, normal turgor, no rashes. no grossly visible overlying skin changes or signs of trauma. HEENT: Normocephalic, atraumatic, no osborne signs. no raccoon eyes, pupils are equal and reactive to light, extraocular muscles intact, tympanic membranes and canals normal bilat, mucosal membranes moist, pink conjunctiva, no pharyngeal erythema no tonsilar exudate. no drooling, tripoding, voice change or stridor, uvula midline. tongue protrudes midline Neck: Supple, no tenderness, no lymphadenopathy. full rom and full strength. no meningeal signs. no signs of central cord syndrome CV: Regular rate and rhythm, Lungs: Clear to auscultation bilaterally, no wheezes, symmetrical chest rise. no chest wall ttp Abdomen: Soft, nontender, nondistended, good bowel sounds, no rebound, rigidity, guarding or peritoneal signs. No CVA tenderness bilaterally. This is a nonacute abdomen. No tenderness over McBurney's point. no grossly visible or palpable abdominal hernias Genitalia: pt deferred Rectal: deferred; however, no sign of loss of bowel or bladder, no soiling of clothing Back: There is increased tissue tension over the paralumbar musculature on the bilat sides, L>R. Palpation to this region did reproduce patient's pain exactly. There is no tenderness to palpation along the midline of the cervical, thoracic or lumbar spine. There are no step-offs or deformities noted. no overlying skin changes other than a well healed midline scar to L-spine from pts prior surgery remotely. no sign of dehiscence, compromise, infection, or complication. incision is c/d/i. no erythema. no ttp. Extremities: Distal pulses two out of four, good capillary refill, no edema, cyanosis or clubbing. full rom and full strength in all extremities with pain on left hip flexion and extension. no swelling or ttp of the extremities. normal gait. good hand rn school. neg mary sign. neg dempsey squeeze. no drop foot. no shortening or rotation of the limbs. no obvious deformities. Neuro: Cranial nerves II through XII intact, normal speech, cerebellar function intact. Symmetric smile and faces. reflexes wnl. motor and sensation intact to light touch. - INFECTION CONTROL TRAVEL OUTSIDE OF THE [place] IN LAST 30 DAYS: No Course - Re-evaluation Re-evalutation: 02/19/19 00:24 Pt here for a likely acute exacerbation of his chronic low back pain. his labs were unremarkable other than a slight increase in his creat from 4 days ago however he has been taking excessive nsaids which could account for this. his ua was neg. uds neg. he denies uti sx. he already had neg labs, neg ct and neg testicular us done here 4 days ago so these weren't repeated however given hx of fall i did per pt request do a lumbar xr which showed nothing acute and chronic stable post op changes per rad and reviewed by myself. pt improved with tx here. pt informed of findings. sx likely lumbar strain. he states steroids don't work for him and he would just like a script for muscle relaxers. he is neurononfocal. no sign of cauda equina, spinal cord involvement, or central cord syndrome. afebrile. pain controlled and otherwise well appearing. he also just got 15 percocet here 4 days ago, so after discussing case with ed attending advised will no longer be writing for narcotic pain meds for this and will dc with a few robaxin. gave medication precautions. tylenol for any pain. avoid nsaids with htn and until cleared by pcp and having his renal function rechecked. ice/heat to the area. advised to also avoid taking more than one nsaid at once. otc lidocaine patches. he denies gi side effects. drink plenty of fluids. advised to f/u with pcp/ortho/neurosurg in 1-2 days. return for any worsening symptoms. vss. well appearing. satting well on ra. neurononfocal. pt understands and agrees to plan. On reexam, pt improved with tx listed. remained stable. nontoxic. well appearing. pain controlled. tolerating po. requesting to go home. neurononfocal. case discussed with ER Attending, Dr. nieto, who directed and agrees with plan of care and advised no further workup indicated at this time and pt is stable for dc home with close f/u with pcp/specialist. Documentation achieved through voice recording which my lead to some occasional accidental typographical errors. Extensive efforts have been made to proof read documentation to make sure these are the least as possible. Upon review of the [place] drug database the patient got 15 Percocet 5 mg here 4 days ago here, 28 Vicodin 10 mg in August and 2 more also on the same date, prior to that he was on buprenorphine 5 mcg/h patches 10/10/2017 through 02/09/2018, but hasn't gotten any other narcotics in the last 6mths Category Date Time Status Saline Lock (ED) NOW Care 02/18/19 22:09 Active Lumbar spine complete [L SPINE WHOLE] [RAD] Stat Exams 02/18/19 23:01 Completed CBC WITH DIFF [HEME] Stat Lab 02/18/19 23:30 Completed COMPREHENSIVE METABOLIC PANEL [CHEM] Stat Lab 02/18/19 23:30 Completed LIPASE [CHEM] Stat Lab 02/18/19 23:30 Completed URINALYSIS [URIN] Stat Lab 02/18/19 23:09 Completed URINE DRUG SCREEN [CHEM] Stat Lab 02/18/19 23:09 Completed Methocarbamol [Robaxin 500 mg Tablet] Med 02/19/19 00:55 Discontinued 1,000 mg PO NOW ONE Oxycodone HCl/Acetaminophen [Percocet 5-325 mg Tablet] Med 02/18/19 23:02 Discontinued 2 tab PO NOW ONE - Vital Signs Vital signs: Temp Pulse Resp BP Pulse Ox 98.4 F 83 18 191/66 H 97 02/18/19 19:50 02/18/19 19:50 02/18/19 19:50 02/18/19 19:50 02/18/19 19:50 Temp Pulse Resp BP Pulse Ox 02/19/19 00:49 97.7 F 65 18 155/90 H 98 02/18/19 19:50 98.4 F 83 18 191/66 H 97 - Laboratory Result Diagrams: 02/18/19 23:30 02/18/19 23:30 Laboratory results interpreted by me: Labs- Entire Visit 02/18/19 02/18/19 02/18/19 23:09 23:09 23:30 WBC 8.9 RBC 5.22 Hgb 16.3 Hct 49.0 MCV 94 MCH 31.2 MCHC 33.2 RDW 14.3 H Plt Count 280 Seg Neutrophils % 52.6 Lymphocytes % 38.0 Monocytes % 6.5 Eosinophils % 2.3 Basophils % 0.6 Absolute Neutrophils 4.7 Absolute Lymphocytes 3.4 Absolute Monocytes 0.6 Absolute Eosinophils 0.2 Absolute Basophils 0.1 Sodium Potassium Chloride Carbon Dioxide Anion Gap BUN Creatinine Est GFR ( Amer) Est GFR (Non-Af Amer) Glucose Calcium Total Bilirubin Direct Bilirubin Neonat Total Bilirubin Neonat Direct Bilirubin Neonat Indirect Bili AST ALT Alkaline Phosphatase Total Protein Albumin Lipase Urine Color STRAW Urine Appearance CLEAR Urine pH 8.0 Ur Specific [place] 1.005 Urine Protein NEGATIVE Urine Glucose (UA) NEGATIVE Urine Ketones NEGATIVE Urine Blood NEGATIVE Urine Nitrite NEGATIVE Urine Bilirubin NEGATIVE Urine Urobilinogen NEGATIVE Ur Leukocyte Esterase NEGATIVE Urine WBC (Auto) 0 Urine RBC (Auto) 2 Urine Ascorbic Acid NEGATIVE Urine Opiates Screen NEGATIVE Urine Methadone Screen NEGATIVE Ur Barbiturates Screen NEGATIVE Ur Phencyclidine Scrn NEGATIVE Ur Amphetamines Screen NEGATIVE U Benzodiazepines Scrn NEGATIVE Urine Cocaine Screen NEGATIVE U Marijuana (THC) Screen NEGATIVE 02/18/19 23:30 WBC RBC Hgb Hct MCV MCH MCHC RDW Plt Count Seg Neutrophils % Lymphocytes % Monocytes % Eosinophils % Basophils % Absolute Neutrophils Absolute Lymphocytes Absolute Monocytes Absolute Eosinophils Absolute Basophils Sodium 139.0 Potassium 5.0 Chloride 105 Carbon Dioxide 28 Anion Gap 6 BUN 15 Creatinine 1.29 H Est GFR ( Amer) > 60 Est GFR (Non-Af Amer) 56 L Glucose 89 Calcium 9.9 Total Bilirubin 0.4 Direct Bilirubin 0.4 Neonat Total Bilirubin Not Reportable Neonat Direct Bilirubin Not Reportable Neonat Indirect Bili Not Reportable AST 93 H ALT 69 Alkaline Phosphatase 86 Total Protein 8.3 H Albumin 4.4 Lipase 48.2 Urine Color Urine Appearance Urine pH Ur Specific [place] Urine Protein Urine Glucose (UA) Urine Ketones Urine Blood Urine Nitrite Urine Bilirubin Urine Urobilinogen Ur Leukocyte Esterase Urine WBC (Auto) Urine RBC (Auto) Urine Ascorbic Acid Urine Opiates Screen Urine Methadone Screen Ur Barbiturates Screen Ur Phencyclidine Scrn Ur Amphetamines Screen U Benzodiazepines Scrn Urine Cocaine Screen U Marijuana (THC) Screen - Diagnostic Test Radiology reviewed: Image reviewed, Reports reviewed Radiology results interpreted by me: Lumbar Spine X-Ray 02/18/19 23:01 IMPRESSION: 1. Status post L3-S1 PLIF 2. No acute fracture 3. No significant change since 08/22/2016 Discharge - Discharge Clinical Impression: Elevated serum creatinine, Renal calculus, bilateral Low back strain Qualifiers: Encounter type: subsequent encounter Qualified Code(s): S39.012D - Strain of muscle, fascia and tendon of lower back, subsequent encounter Condition: Good Disposition: HOME, SELF-CARE Instructions: Chronic Back Pain ([facility]) Additional Instructions: Follow-up with PCP/neurosurg/ortho 1 to 2 days. Return for any worsening symptoms. tylenol for any pain. have your pcp recheck your kidney function as discussed. ice/heat to your back. do not work, drive, or operate machinery while taking the muscle relaxers. drink plenty of water. Prescriptions: Methocarbamol [Robaxin] 1,000 mg PO QID PRN #30 tablet PRN Reason: Muscle Spasms Referrals: JOSE ALEJANDRO ESCOBAR MD [Primary Care Provider] - Follow up in 3-5 days
[2019-02-18] MEDS ORDERED: OXYCODONE-ACETAMINOPHEN 5-325 MG TABLET PO ONE (23:02)
[2019-02-18 23:26] LABS: APPEARANCE,URINE CLEAR; BILIRUBIN,URINE NEGATIVE (NEGATIVE); COLOR,URINE STRAW; GLUCOSE, URINE NEGATIVE (NEGATIVE); KETONES,URINE NEGATIVE (NEGATIVE); LEUKOCYTE ESTERASE,URINE NEGATIVE (NEGATIVE); NITRITE,URINE NEGATIVE (NEGATIVE); PROTEIN,URINE NEGATIVE (NEGATIVE); URINE SPECIFIC GRAVITY 1.005; UROBILINOGEN,URINE NEGATIVE mg/dL (<2.0)
[2019-02-18 23:39] LABS: ABSOLUTE BASOPHILS # (AUTO) 0.1 10^3/uL (0.0-0.2); ABSOLUTE EOSINOPHILS # (AUTO) 0.2 10^3/uL (0.0-0.6); ABSOLUTE LYMPHOCYTES (AUTO) 3.4 10^3/uL (0.5-4.7); ABSOLUTE MONOCYTES (AUTO) 0.6 10^3/uL (0.1-1.4); ABSOLUTE NEUT (AUTO) 4.7 10^3/uL (1.7-8.2); BASOPHILS % (AUTO) 0.6 % (0-2); EOSINOPHILS % (AUTO) 2.3 % (0-6); HEMOGLOBIN 16.3 g/dL (13.5-17.0); MEAN CORPUSCULAR HEMOGLOBIN 31.2 pg (27.0-33.4); MEAN CORPUSCULAR HGB CONC 33.2 g/dL (32.0-36.0); MEAN CORPUSCULAR VOLUME 94 fl (80-97); MONOCYTES % (AUTO) 6.5 % (3-13); PLATELET COUNT 280 10^3/uL (150-450); RED BLOOD COUNT 5.22 10^6/uL (4.35-5.55); RED CELL DISTRIBUTION WIDTH 14.3 % (11.5-14.0); SEGMENTED NEUTROPHILS % (AUTO) 52.6 % (42-78); TOTAL CELLS COUNTED % (AUTO) 100 %; WHITE BLOOD COUNT 8.9 10^3/uL (4.0-10.5)
[2019-02-18 23:43] LABS: URINE AMPHETAMINES SCREEN NEGATIVE; URINE BARBITURATES SCREEN NEGATIVE; URINE BENZODIAZEPINES SCREEN NEGATIVE; URINE COCAINE SCREEN NEGATIVE; URINE MARIJUANA (THC) SCREEN NEGATIVE; URINE METHADONE SCREEN NEGATIVE; URINE PHENCYCLIDINE SCREEN NEGATIVE
--- NOTE | 2019-02-18 23:51 | RADIOLOGY REPORT (SQ) ---
EXAM DESCRIPTION: [facility]: XR LUMBAR SPINE ANTEROPOSTERIOR, LATERAL, AND OBLIQUES Views: 5 CLINICAL HISTORY: 64 years Male, left low back pain COMPARISON: 08/22/2016 FINDINGS: Posterior fixation hardware at L3-S1 is again noted, with no evidence for loosening. Anterior subluxation of L4-L5 and L5-S1 is similar. Vertebral heights are unchanged. There is a persistent dextrocurvature of the lumbar spine, centered at the L3 level. No acute fractures. No suspicious lytic or blastic lesions. IMPRESSION: 1. Status post L3-S1 PLIF 2. No acute fracture 3. No significant change since 08/22/2016
[2019-02-18 23:59] LABS: ALANINE AMINOTRANSFERASE 69 U/L (21-72); ALBUMIN 4.4 g/dL (3.5-5.0); ALKALINE PHOSPHATASE 86 U/L (38-126); ANION GAP 6 (5-19); ASPARTATE AMINO TRANSFERASE 93 U/L (17-59); BILIRUBIN,DIRECT 0.4 mg/dL (0.0-0.4); BILIRUBIN,TOTAL 0.4 mg/dL (0.2-1.3); BLOOD UREA NITROGEN 15 mg/dL (7-20); CALCIUM 9.9 mg/dL (8.4-10.2); CARBON DIOXIDE 28 mmol/L (22-30); CHLORIDE 105 mmol/L (98-107); GLUCOSE 89 mg/dL (75-110); TOTAL PROTEIN 8.3 g/dL (6.3-8.2)
[2019-02-19 00:52] VITALS: BP 155/90
[2019-02-19] MEDS ORDERED: METHOCARBAMOL 500 MG TABLET PO ONE (00:55)
== END 2019-02-19 01:01 | disposition home or self-care (01) ==
LOC: ER 19:31
DX: S39.012A Strain of muscle, fascia and tendon of lower back, initial encounter (principal); W17.89XA Other fall from one level to another, initial encounter; N20.0 Calculus of kidney; R79.89 Other specified abnormal findings of blood chemistry; G89.29 Other chronic pain; Z79.899 Other long term (current) drug therapy; F17.200 Nicotine dependence, unspecified, uncomplicated; F12.10 Cannabis abuse, uncomplicated; I10 Essential (primary) hypertension
CPT/HCPCS: 99284; 36415; 83690; 85025; 80053; 81001; 80307; 72110; A9270 ×2

== ENCOUNTER 2019-05-09 03:44 | Emergency (ER) | payer MEDICARE, MEDICAID ==
--- NOTE | 2019-05-09 04:22 | ER Document Report ---
Entered by HAI JOHNSON SCRIBE 05/09/19 0412 Acting as scribe for:SUKHDEV ANTONIO MD ED Neuro Symptoms/Deficit - General Chief Complaint: S/S of Possible Stroke Stated Complaint: STROKE Time Seen by Provider: 05/09/19 03:51 Primary Care Provider: JOSE ALEJANDRO ESCOBAR MD [Primary Care Provider] - Follow up as needed Mode of Arrival: Medic Information source: Relative Notes: This 64-year-old male patient was brought the emergency room by EMS for possible stroke. The history is quite confusing and that the patient is unable to speak at all. His girlfriend has a history which seems to repeatedly change. The best most consistent history I have been able to obtain is as follows: The patient took Viagra about 4 PM in the afternoon. A pill count this evening shows 5 Viagra 20 mg tablets missing from a prescription filled on 05/08/2019. The patient does have chronic low back pain, and walks with a cane. He and the girlfriend both attend Narcotics Anonymous. Late this evening he was not acting like himself but was "off a little". The girlfriend reports that she was able to understand his speech at that time, but that he was much more quiet than usual. They began watching a movie about 11 PM and he was falling asleep during this movie, but would wake up when the sound would get loud. Around midnight he went into the kitchen and vomited twice. At some point after that she was trying to call 911, and he was trying to take his phone away from her. She does not recall if he was using both of this is extremities or only one. She reports his speech stopped completely about 2 AM. EMS reports she had no use of his right upper extremity when they arrived, but it has improved slightly at this point. TRAVEL OUTSIDE OF THE [place] IN LAST 30 DAYS: No - Related Data Allergies/Adverse Reactions: tetanus toxoid, adsorbed Allergy (Verified 11/09/18 14:58) Past Medical History - General Information source: Relative, [facility] Records - Social History Smoking Status: Current Every Day Smoker Cigarette use (# per day): Yes - 1 ppd Lives with: Family Family History: Reviewed & Not Pertinent - Past Medical History Cardiac Medical History: Reports: Hx Hypertension Pulmonary Medical History: Reports: Hx Asthma Renal/ Medical History: Reports: Hx Kidney Stones Musculoskeletal Medical History: Reports Hx Arthritis, Reports Hx Musculoskeletal Deformity, Reports Hx Musculoskeletal Trauma Skin Medical History: Reports Hx Cellulitis Traumatic Medical History: Reports: Hx Fractures - Fingers Past Surgical History: Reports: Hx Orthopedic Surgery - Back surgery 2016- with posterior fixation in lower lumbar spine-stable - Immunizations Hx Diphtheria, Pertussis, Tetanus Vaccination: No - ALLERGY TO TETANUS VACCINE Hx Pneumococcal Vaccination: 04/23/18 Review of Systems - Review of Systems -: Yes ROS unobtainable due to patient's medical condition Physical Exam - Notes Notes: Physical Exam: General: The patient does seem arousable to his name, and tries to open his good right eye. He is neglecting his right side and must stand on the left side to get his attention.. HEENT: Normocephalic. Atraumatic. Oropharynx clear. Neck: Supple. Non-tender. Respiratory: No respiratory distress. Clear and equal breath sounds bilaterally. Cardiovascular: Tachycardic, regular rhythm. Abdominal: Normal Inspection. Non-tender. No distension. Normal Bowel Sounds. Back: No gross abnormalities. Extremities: Does not lift right upper extremity when he is instructed to, but when I lifted the arm up into the air, he would hold it up there and wave it around while his head was turned looking to the left. He does lift the left upper extremity on command, but it seems to be weak with poor coordination, but this may be due to him not understanding what is going on. He does not lift the left lower extremity when requested or when I pull on his pant leg to help him understand what I am asking. He does try to lift the right lower extremity under similar circumstance. When I flexed both lower extremities at the hips and knees and wrists it is healed on the stretcher, he kept them in that position for a while and then extended both extremities back out to where the knees were straight. Neurological: See extremity exam. He does seem confused and not always understanding what we are requesting. He is completely a phasic and only grunts. He does not have a gag reflex, I put a tongue blade in the back of his throat and lifted his uvula up and down with no response. When I asked him to smile and he finally comprehends what I want, he does show a right facial motor weakness. He is able to track with his right eye but this is inconsistent. He does seem to totally disregard his right side. He is not able to follow any complex commands such as hold his hand out or turn it palm down palm up. Skin: Warm. Diaphoretic. Normal color. Course - Re-evaluation Re-evalutation: 05/09/19 05:43 The patient does appear to have suffered an acute CVA. He is not a TPA candidate. His creatinine is 2.22, without an elevation of his BUN. We are not able to provide dialysis at this facility, so he is not a candidate for a contrasted CT of the head and neck. He does have an unexplained leukocytosis with shift. His drug screen is positive for amphetamine. His NIH scale was 22, however this is very unreliable number due to the limitations of doing an exam on him. His case was discussed with the on-call neurology service at [facility], and he is excepted as a stroke alert. - Laboratory Result Diagrams: 05/09/19 03:50 05/09/19 03:50 - Diagnostic Test Radiology reviewed: Image reviewed, Reports reviewed - CT scan of the head does not show acute abnormality. Chest x-ray is unremarkable. - EKG Interpretation by Ms EKG shows normal: Sinus rhythm, Martha, Intervals, QRS Complexes, ST-T Waves Rate: Tachycardia - 115 When compared to previous EKG there are: No significant change - Consults Aaron Velazquez Consulted provider: other - Will accept at [facility] on behalf of Dr. Cannon Critical Care Note - Critical Care Note Total time excluding time spent on procedures (mins): 55 ED [employer]te[employer]ase [employer]/Exc Criteria - Inclusion Criteria: 1: Patient presented to ED within 3 hours of acute ischemic stroke symptom onset? -: No 2: Did baseline CT exclude intracranial hemorrhage and/or other risk factors? -: Yes 3: Is the age of the patient 18 years of age or greater? -: Yes : If any of the above questions are answered "NO" then stop, patient is not a candidate for Alteplase, : If all of the above questions are answered "YES" then continue with Exclusion Criteria. - Exclusion Criteria: 1: Is there evidence of intracranial hemorrhage on baseline CT? -: No 2: Is there suspicion of subarachnoid hemorrhage (even if CT negative)? -: No 3: Is there a history of serious head trauma, recent previous stroke or FL within 3 months? -: No 4: Does the patient have a clinical presentation consistent with FL or post-FL pericarditis? -: No 5: Is there history of intracranial hemorrhage? -: No 6: On repeated measurement is Systolic BP greater than 185mmHg or Diastolic BP greater that 110 mmHg and is aggressive treatment needed to reduce blood pressure to these limits (e.g. constant infusion of an anti-hypertensive)? -: No 7: Did the patient awake with stroke symptoms? -: No 8: Has the patient had a lumbar puncture or an arterial puncture at a non- compressile site within 7 days? -: No 9: With in the last 14 days did the patient have surgery or major trauma? 10: Is the patient or less than 2 weeks? -: No 11: Was there any active bleeding or acute trauma? -: No 12: Does the patient have intracranial neoplasm, arteriovenous malformation or aneurysm? -: No 13: Does the patient have abnormal glucose (less than 50 or greater than 400mg/dl)? Record glucose in Comment. 14: Patient has rapidly improving symptoms at the time Alteplase is to be Administered. -: No 15: Does the patient have any risks for bleeding, including but not limited to: a.: Current use of Coumadin with PT greater than 15 seconds or INR greater than 1.7. b.: Current use of Pradaxa (Dabigatran). c.: Heparin administereed within the past 48 hours and PTT elevated. d.: Platelet count less than 100,000/mm. e.: Major surgery or serious trauma within 14 days. f.: Gastrointestinal or gynecological urinary bleeding within 14 days. g.: Myocardial Infarction (FL) within 3 months. -: No : If the answer to any of the above questions is "YES" then stop, the patient is not a candidate for Alteplase. : If the answer to all of the above questions is "NO" then the patient may be eligible for the Administration of Alteplase. : If the patient is noted to have seizure activity at onset of Stroke symptoms; Consult Neurologist for further evaluation. - The patient is: -: Included and is eligible to receive Alteplase. *Initiate bed placement at higher level of care* --: No Reviewed risks & benefits of thrombolytic therapy: I have reviewed the risks and benefits of thrombolytic therapy with the patient and/or his/her family. No - Patient is unable to comprehend. No family present. -: Excluded and not eligible to receive Alteplase for the above exclusions. -: Excluded and not eligible to receive Alteplase for other reasons (specify in comments): --: No - Working on her day here - Diagnosis of TIA: -: Patient presented with transient symptoms that are now resolved and no other neurologic findings are currently present. List symptoms in comments. -: Patient is NOT a candidate for tPA. -: ____(put name in comment) has been consulted for admission and continued evaluation of risk factor assessment. Discharge - Discharge Clinical Impression: Acute CVA (cerebrovascular accident), Amphetamine abuse Leukocytosis Qualifiers: Leukocytosis type: bandemia Qualified Code(s): D72.825 - Bandemia Condition: Fair Disposition: [facility] Referrals: JOSE ALEJANDRO ESCOBAR MD [Primary Care Provider] - Follow up as needed I personally performed the services described in the documentation, reviewed and edited the documentation which was dictated to the scribe in my presence, and it accurately records my words and actions.
--- NOTE | 2019-05-09 04:25 | RADIOLOGY REPORT (SQ) ---
Chest single view on 05/09/2019 at 3:58 AM CLINICAL INDICATION: Stroke protocol COMPARISON: 08/26/2018 FINDINGS: The lungs are clear. Mild vascular calcification is noted in the aorta. Cardiac, hilar and mediastinal contours are within normal limits. Pulmonary vascularity is within normal limits. No bony abnormality is noted. IMPRESSION: No active disease.
--- NOTE | 2019-05-09 04:28 | RADIOLOGY REPORT (SQ) ---
CT head without contrast on 05/09/2019 at 3:52 AM CLINICAL INDICATION: Right-sided pinpoint pupil, patient reportedly took five Viagra, stroke TECHNIQUE: Multiple axial images are obtained throughout the head without the administration of contrast. This exam was performed according to our departmental dose-optimization program, which includes automated exposure control, adjustment of the mA and/or kV according to patient size and/or use of iterative reconstruction technique. Total DLP is 1070.38 mGy*cm. COMPARISON: None FINDINGS: There is no hydrocephalus. There is no CT evidence of acute infarct. There is no hemorrhage. There are no abnormal extra-axial fluid collections. There is no mass, mass effect or midline shift. Left eye prosthesis is noted. No bony abnormality is noted. IMPRESSION: No acute intracranial abnormality.
[2019-05-09 04:31] LABS: HEMATOCRIT 54.3 % (37.9-51.0); HEMOGLOBIN 17.7 g/dL (13.5-17.0); MEAN CORPUSCULAR HEMOGLOBIN 30.8 pg (27.0-33.4); MEAN CORPUSCULAR HGB CONC 32.5 g/dL (32.0-36.0); MEAN CORPUSCULAR VOLUME 95 fl (80-97); PLATELET COUNT 262 10^3/uL (150-450); RED BLOOD COUNT 5.73 10^6/uL (4.35-5.55); RED CELL DISTRIBUTION WIDTH 13.1 % (11.5-14.0); WHITE BLOOD COUNT 29.6 10^3/uL (4.0-10.5)
[2019-05-09 04:33] LABS: INTERNATIONAL RATION (INR) 1.08; PROTHROMBIN TIME 14.1 SEC (11.4-15.4)
[2019-05-09 04:35] LABS: ALKALINE PHOSPHATASE 130 U/L (38-126); ANION GAP 17 (5-19); ASPARTATE AMINO TRANSFERASE 102 U/L (17-59); BILIRUBIN,DIRECT 0.8 mg/dL (0.0-0.4); BILIRUBIN,TOTAL 1.1 mg/dL (0.2-1.3); BLOOD UREA NITROGEN 17 mg/dL (7-20); CALCIUM 10.9 mg/dL (8.4-10.2); CARBON DIOXIDE 26 mmol/L (22-30); CHLORIDE 104 mmol/L (98-107); CREATINE KINASE 77 U/L (55-170); GLUCOSE 124 mg/dL (75-110); POTASSIUM 4.5 mmol/L (3.6-5.0); TOTAL PROTEIN 9.2 g/dL (6.3-8.2)
--- NOTE | 2019-05-09 04:35 | ER Document Report ---
ED NIH Stroke Scale - NIH Stroke Scale When completed:: Before Alteplase *: 1. NIH scale should be completed with appropriate accompanying assessment tools. *: 2. The NIH should reflect what the patient is capable of doing and should not be coached by the clinician. 1a. Level of Consciousness: 0=Alert;keenly responsive -: 1=Drowsy -: 2=Obtunded -: 3=Coma/unresponsive or reflex to noxious stimuli. 1a. Responses: 1 1b. Orientation Questions: a. What month is it? -: b. How old are you? -: 0=Answers both questions correctly. -: 1=Answers one question correctly or patient is intubated or has orotracheal trauma. -: 2=Answers neither question correctly. 1b. Responses: 0 1c. Response to commands: a. Open and close eyes? -: b. Radiologist Chief Of Breast Imaging and release hand? -: Credit is given despite weakness. Demonstration of task is permitted. Substitute command if hands cannot be used. -: 0=Performs both tasks correctly -: 1=Performs one task correctly -: 2=Performs neither task correctly 1c. Responses: 1 2. Gaze: Establish eye contact and instruct patient to "Follow my finger" -: 0=Normal -: 1=Partial gaze palsy. Gaze is abnormal in one or both eyes, but where forced deviation or total gaze paresis is not present. -: 2=Forced deviation or total gaze paresis. 2. Responses: 1 3. Visual Strickland: Sees fingers in all four quadrants. -: 0=No visual loss. -: 1=Partial hemianopsia. -: 2=Complete hemianopsia. -: 3=Bilateral hemianopsia (including Cortical blindness) 3. Responses: 1 4. Facial Movement: Instruct patient to: -: a. Show me your teeth -: b. Raise your eyebrows -: c. Close your eyes -: d. Smile -: 0=Normal symmetrical movement -: 1=Minor paralysis (flattened nasolabial fold, asymmetry on smiling). -: 2=Partial paralysis (total or near total paralysis of lower face). -: 3=Complete paralysis of upper and lower face 4. Responses: 2 5. Motor functions (left arm): Alternate sides and extend each arm with palms down (90 degrees if sitting or 45 degrees for supine). -: 0=No drift;limb holds for full 10 seconds. -: 1=Drift; limb holds but drifts down before full 10 seconds, but does not hit bed. -: 2=Some effort against gravity; limb cannot get to or maintain position. -: 3=No effort against gravity; limb falls. -: 4=No movement. -: UN=Amputation, joint fusion, explain in comments. 5. Responses (left arm): 0 5. Motor Functions (right arm): Alternate sides and extend each arm with palms down (90 degrees if sitting or 45 degrees for supine). -: 0=No drift;limb holds for full 10 seconds. -: 1=Drift; limb holds but drifts down before full 10 seconds, but does not hit bed. -: 2=Some effort against gravity; limb cannot get to or maintain position. -: 3=No effort against gravity; limb falls. -: 4=No movement. -: UN=Amputation, joint fusion, explain in comments. 5. Responses (right arm): 0 6. Motor Functions (left leg): With patient lying supine, alternate sides and extend each leg (30 degrees always while supine). -: 0=No drift, leg holds position for full 5 seconds -: 1=Drift; leg falls before full 5 seconds but does not hit bed. -: 2=Some effort against gravity, leg falls to bed but some effort against gravity. -: 3=No effort against gravity, leg falls to bed immediately. -: 4=No movement. -: UN=Amputation, joint fusion; explain in comments. 6. Responses (left leg): 3 6. Motor Functions (right leg): With patient lying supine, alternate sides and extend each leg (30 degrees always while supine). -: 0=No drift, leg holds position for full 5 seconds -: 1=Drift; leg falls before full 5 seconds but does not hit bed. -: 2=Some effort against gravity, leg falls to bed but some effort against gravity. -: 3=No effort against gravity, leg falls to bed immediately. -: 4=No movement. -: UN=Amputation, joint fusion; explain in comments. 6. Responses (right leg): 3 7. Limb Ataxia: With eyes open instruct patient to: -: a. "Touch your finger to your nose". -: b. "Touch your heel to your braswell" -: 0=Absent -: 1=Present in one limb. -: 2=Present in two limbs. -: UN=Amputation or joint fusion; explain in comments. 7. Responses: 2 7. If ataxia present choose as appropriate: Left arm, Left leg, Right arm, Right leg 8. Sensory: Test sensation using pinprick or noxious stimuli. Test as many body parts as possible. -: 0=Normal;no sensory loss -: 1=Mile to moderate sensory loss (patient feels pin prick but is less sharp on affected side). -: 2=Severe or total sensory loss. 8. Responses: 1 9. Best Language: Instruct patient to: -: a. "Describe what you see in this picture." -: b. "Name the items in this picture." -: c. "Read these sentences." -: 0=No aphasia, normal -: 1=Mild to moderate aphasia. -: 2=Severe aphasia -: 3=Mute, global aphasia, no usable speech or auditory comprehension. 9. Responses: 3 10. Articulation, Dysarthia: Instruct patient to: -: "Read these words" or "Repeat these words" -: 0=Normal -: 1=Mild to moderate; patient may slur some words but can be understood without difficulty. -: 2=Severe; patients speech so slurred as to be unintelligible in the absence of dysphasia. -: UN=Intubated or other physical barrier, explain in comments. 10. Responses: 2 11. Extinction or inattention: 0=No abnormality -: 1= Visual, tactile, auditory, spatial, or personal inattention or extinction to bilateral simulation in one or the sensory modalities. -: 2=Profound mayra-inattention or mayra-inattention to more than one modality; does not recognize own hand. 11. Responses: 2 Total Score: 22 Notes: The patient this regard to his right side. 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 He does move extremities, he does not seem to understand most of what is asked of him. He does not seem to follow simple commands other than repeated attempts to get him to smile or open and close his eyes. I think this NIH scale is not very reliable due to the limitations in trying to obtain the scale.
[2019-05-09 04:57] LABS: ABSOLUTE LYMPHOCYTES# (MANUAL) 0.6 10^3/uL (0.5-4.7); ABSOLUTE MONOCYTES # (MANUAL) 1.2 10^3/uL (0.1-1.4); BAND NEUTROPHILS % (MANUAL) 10 % (3-5); BASOPHILS % (MANUAL) 0 % (0-2); EOSINOPHILS % (MANUAL) 0 % (0-6); LYMPHOCYTES % (MANUAL) 1 % (13-45); MONOCYTES % (MANUAL) 4 % (3-13); SEGMENTED NEUTROPHILS % (MAN) 84 % (42-78); TOTAL CELLS COUNTED 100
[2019-05-09 04:58] LABS: PLATELET COMMENT ADEQUATE; RBC MORPHOLOGY COMMENT NORMO-CYTIC/CHROMIC
[2019-05-09 05:06] LABS: APPEARANCE,URINE CLEAR; BILIRUBIN,URINE NEGATIVE (NEGATIVE); COLOR,URINE YELLOW; GLUCOSE, URINE NEGATIVE (NEGATIVE); KETONES,URINE NEGATIVE (NEGATIVE); LEUKOCYTE ESTERASE,URINE NEGATIVE (NEGATIVE); NITRITE,URINE NEGATIVE (NEGATIVE); PROTEIN,URINE NEGATIVE (NEGATIVE); URINE SPECIFIC GRAVITY 1.006; UROBILINOGEN,URINE NEGATIVE mg/dL (<2.0)
[2019-05-09 05:20] LABS: URINE AMPHETAMINES SCREEN UNCONFIRMED POSITIVE; URINE BARBITURATES SCREEN NEGATIVE; URINE BENZODIAZEPINES SCREEN NEGATIVE; URINE COCAINE SCREEN NEGATIVE; URINE MARIJUANA (THC) SCREEN NEGATIVE; URINE METHADONE SCREEN NEGATIVE; URINE PHENCYCLIDINE SCREEN NEGATIVE
[2019-05-09 05:43] VITALS: BP 137/80
--- NOTE | 2019-05-09 09:12 | EKG REPORT ---
SEVERITY:- OTHERWISE NORMAL ECG - SINUS TACHYCARDIA : Confirmed by: Chavez Ga 09-May-2019 09:11:31
== END 2019-05-09 05:50 | disposition short-term general hospital (02) ==
LOC: ER 03:44
DX: I63.9 Cerebral infarction, unspecified (principal); R47.01 Aphasia; R29.810 Facial weakness; I10 Essential (primary) hypertension; D72.825 Bandemia; F15.10 Other stimulant abuse, uncomplicated; R11.10 Vomiting, unspecified; R00.0 Tachycardia, unspecified; M54.9 Dorsalgia, unspecified; G89.29 Other chronic pain; F17.210 Nicotine dependence, cigarettes, uncomplicated; J45.909 Unspecified asthma, uncomplicated; R61 Generalized hyperhidrosis; Z88.7 Allergy status to serum and vaccine
CPT/HCPCS: 36415; 70450; 71045; 80053; 80307; 81001; 82550; 82962; 84484; 85025; 85610; 93005; 93010; 99291

== ENCOUNTER 2019-07-09 13:35 | Inpatient (IN) | payer MEDICARE, MEDICAID ==
--- NOTE | 2019-07-09 15:11 | ER Document Report ---
ED Medical Screen (RME) - General Chief Complaint: Weakness Stated Complaint: WEAKNESS,NAUSEA Time Seen by Provider: 07/09/19 15:02 Primary Care Provider: JOSE ALEJANDRO ESCOBAR MD [Primary Care Provider] - Follow up as needed Notes: 64-year-old male presents with multiple complaints to include weakness, "violent left leg pain", and nausea for the past 3 to 4 days. Patient seen here about 6 weeks ago and transferred for an acute CVA. Patient did drive here today. Exam: Well-appearing and not in extremis, cachectic. Lungs are clear to auscultation all watson, regular cardiac rate and rhythm with no murmurs. I have greeted and performed a rapid initial assessment of this patient. A comprehensive ED assessment and evaluation of the patient, analysis of test results and completion of medical decision making process will be conducted by an additional ED providers. TRAVEL OUTSIDE OF THE [place] IN LAST 30 DAYS: No - Related Data Allergies/Adverse Reactions: tetanus toxoid, adsorbed Allergy (Verified 07/09/19 15:05) Past Medical History - Past Medical History Cardiac Medical History: Reports: Hx Hypertension Denies: Hx Atrial Fibrillation, Hx Congestive Heart Failure, Hx Coronary Artery Disease, Hx Heart Attack, Hx Hypercholesterolemia, Hx Pulmonary Embolism Pulmonary Medical History: Reports: Hx Asthma Denies: Hx Bronchitis, Hx COPD, Hx Pneumonia Neurological Medical History: Denies: Hx Cerebrovascular Accident, Hx Migraine, Hx Seizures Endocrine Medical History: Denies: Hx Diabetes Mellitus Type 1, Hx Diabetes Mellitus Type 2, Hx Hyperthyroidism, Hx Hypothyroidism Renal/ Medical History: Reports: Hx Kidney Stones. Denies: Hx End Stage Renal Disease, Hx Peritoneal Dialysis GI Medical History: Denies: Hx Cirrhosis, Hx Gastritis, Hx Gastroesophageal Reflux Disease, Hx Hepatitis, Hx Liver Failure, Hx Pancreatitis, Hx Ulcer Musculoskeltal Medical History: Reports Hx Arthritis, Reports Hx Musculoskeletal Deformity, Reports Hx Musculoskeletal Trauma Skin Medical History: Reports Hx Cellulitis Traumatic Medical History: Reports: Hx Fractures - Fingers Infectious Medical History: Denies: Hx Hepatitis Past Surgical History: Reports: Hx Orthopedic Surgery - Back surgery 2016- with posterior fixation in lower lumbar spine-stable - Immunizations Hx Diphtheria, Pertussis, Tetanus Vaccination: No - ALLERGY TO TETANUS VACCINE Physical Exam - Vital signs Vitals: Temp Pulse Resp BP Pulse Ox 98.2 F 99 18 110/56 L 97 07/09/19 13:49 07/09/19 13:49 07/09/19 13:49 07/09/19 13:49 07/09/19 13:49 Course - Vital Signs Vital signs: Temp Pulse Resp BP Pulse Ox 98.2 F 99 18 110/56 L 97 07/09/19 13:49 07/09/19 13:49 07/09/19 13:49 07/09/19 13:49 07/09/19 13:49 Doctor's Discharge - Discharge Referrals: JOSE ALEJANDRO ESCOBAR MD [Primary Care Provider] - Follow up as needed
[2019-07-09 16:25] LABS: APPEARANCE,URINE TURBID; BILIRUBIN,URINE NEGATIVE (NEGATIVE); COLOR,URINE AMBER; GLUCOSE, URINE NEGATIVE (NEGATIVE); KETONES,URINE NEGATIVE (NEGATIVE); LEUKOCYTE ESTERASE,URINE LARGE (NEGATIVE); NITRITE,URINE NEGATIVE (NEGATIVE); PROTEIN,URINE >=500 mg/dL (NEGATIVE); URINE SPECIFIC GRAVITY 1.015; UROBILINOGEN,URINE NEGATIVE mg/dL (<2.0)
[2019-07-09 16:35] LABS: URINE AMPHETAMINES SCREEN NEGATIVE; URINE BARBITURATES SCREEN NEGATIVE; URINE BENZODIAZEPINES SCREEN NEGATIVE; URINE COCAINE SCREEN NEGATIVE; URINE MARIJUANA (THC) SCREEN NEGATIVE; URINE METHADONE SCREEN NEGATIVE; URINE PHENCYCLIDINE SCREEN NEGATIVE
[2019-07-09 19:34] LABS: HEMATOCRIT 41.6 % (37.9-51.0); MEAN CORPUSCULAR HEMOGLOBIN 30.6 pg (27.0-33.4); MEAN CORPUSCULAR HGB CONC 33.5 g/dL (32.0-36.0); MEAN CORPUSCULAR VOLUME 91 fl (80-97); RED BLOOD COUNT 4.57 10^6/uL (4.35-5.55); RED CELL DISTRIBUTION WIDTH 14.8 % (11.5-14.0)
[2019-07-09 19:40] LABS: PLATELET COUNT 79 10^3/uL (150-450)
[2019-07-09] MEDS ORDERED: NORMAL SALINE 1000 ML 1,000 ML IV ONE ×3 (19:45→22:45)
[2019-07-09 19:55] LABS: ALBUMIN 3.6 g/dL (3.5-5.0); ALKALINE PHOSPHATASE 118 U/L (38-126); ANION GAP 16 (5-19); BILIRUBIN,DIRECT 0.5 mg/dL (0.0-0.4); BILIRUBIN,TOTAL 1.1 mg/dL (0.2-1.3); BLOOD UREA NITROGEN 78 mg/dL (7-20); CALCIUM 8.4 mg/dL (8.4-10.2); CARBON DIOXIDE 25 mmol/L (22-30); CHLORIDE 93 mmol/L (98-107); GLUCOSE 135 mg/dL (75-110); POTASSIUM 3.9 mmol/L (3.6-5.0)
[2019-07-09 20:01] LABS: ABSOLUTE LYMPHOCYTES# (MANUAL) 1.3 10^3/uL (0.5-4.7); ABSOLUTE MONOCYTES # (MANUAL) 1.3 10^3/uL (0.1-1.4); BAND NEUTROPHILS % (MANUAL) 3 % (3-5); BASOPHILS % (MANUAL) 0 % (0-2); EOSINOPHILS % (MANUAL) 0 % (0-6); LYMPHOCYTES % (MANUAL) 3 % (13-45); MONOCYTES % (MANUAL) 3 % (3-13); SEGMENTED NEUTROPHILS % (MAN) 91 % (42-78); TOTAL CELLS COUNTED 100
[2019-07-09 20:04] LABS: ANISOCYTOSIS SLIGHT; PLATELET COMMENT DECREASED
[2019-07-09 20:06] LABS: ASPARTATE AMINO TRANSFERASE 712 U/L (17-59)
[2019-07-09 20:11] LABS: WHITE BLOOD COUNT 44.8 10^3/uL (4.0-10.5)
[2019-07-09] MEDS ORDERED: CEFTRIAXONE 1 GM/D5W RTU 1 GM/50 ML RTUPB IV ONE (20:22)
[2019-07-09] MEDS ORDERED: DIAZEPAM INJ 10 MG/2 ML DISP.SYRIN IV ONE (20:50)
[2019-07-09] MEDS ORDERED: ONDANSETRON HCL INJ/PF 4 MG/2 ML SDV IV ONE (20:50)
--- NOTE | 2019-07-09 20:51 | ER Document Report ---
ED General - General Chief Complaint: Weakness Stated Complaint: WEAKNESS,NAUSEA Time Seen by Provider: 07/09/19 15:02 Primary Care Provider: JOSE ALEJANDRO ESCOBAR MD [Primary Care Provider] - Follow up as needed TRAVEL OUTSIDE OF THE [place] IN LAST 30 DAYS: No - HPI Notes: Patient is a 64-year-old male with history of hypertension and CVA 2mos ago (he believes he is on Xarelto) who presents complaining of nausea vomiting for the past 4 days with suprapubic pressure and voiding small amounts. Patient has had decreased p.o. intake over this time. He is having normal bowel movements. Patient states that he has issues with his left leg which is not uncommon for him. Patient states that he gets spasming in his leg when he tries to move it causing pain. No new injury. Denies any headache, fever, neck pain, URI, sore throat, chest pain, palpitations, syncope, cough, shortness of breath, wheeze, dyspnea, abdominal pain, diarrhea, back pain, loss of control of bowel or bladde r, numbness/tingling, saddle anesthesia, muscle paralysis/weakness, or rash. - Related Data Allergies/Adverse Reactions: tetanus toxoid, adsorbed Allergy (Verified 07/09/19 15:05) Past Medical History - Social History Smoking Status: Current Every Day Smoker Chew tobacco use (# tins/day): No Frequency of alcohol use: Social Drug Abuse: Marijuana Family History: Reviewed & Not Pertinent Patient has suicidal ideation: No Patient has homicidal ideation: No - Past Medical History Cardiac Medical History: Reports: Hx Hypertension Denies: Hx Atrial Fibrillation, Hx Congestive Heart Failure, Hx Coronary Artery Disease, Hx Heart Attack, Hx Hypercholesterolemia, Hx Pulmonary Embolism Pulmonary Medical History: Reports: Hx Asthma Denies: Hx Bronchitis, Hx COPD, Hx Pneumonia Neurological Medical History: Denies: Hx Cerebrovascular Accident, Hx Migraine, Hx Seizures Endocrine Medical History: Denies: Hx Diabetes Mellitus Type 1, Hx Diabetes Mellitus Type 2, Hx Hyperthyroidism, Hx Hypothyroidism Renal/ Medical History: Reports: Hx Kidney Stones. Denies: Hx End Stage Renal Disease, Hx Peritoneal Dialysis GI Medical History: Denies: Hx Cirrhosis, Hx Gastritis, Hx Gastroesophageal Reflux Disease, Hx Hepatitis, Hx Liver Failure, Hx Pancreatitis, Hx Ulcer Musculoskeletal Medical History: Reports Hx Arthritis, Reports Hx Musculoskeletal Deformity, Reports Hx Musculoskeletal Trauma Skin Medical History: Reports Hx Cellulitis Traumatic Medical History: Reports: Hx Fractures - Fingers Infectious Medical History: Denies: Hx Hepatitis Past Surgical History: Reports: Hx Orthopedic Surgery - Back surgery 2016- with posterior fixation in lower lumbar spine-stable - Immunizations Hx Diphtheria, Pertussis, Tetanus Vaccination: No - ALLERGY TO TETANUS VACCINE Hx Pneumococcal Vaccination: 04/23/18 Review of Systems - Review of Systems -: Yes All other systems reviewed and negative Physical Exam - Vital signs Vitals: Temp Pulse Resp BP Pulse Ox 98.2 F 99 18 110/56 L 97 07/09/19 13:49 07/09/19 13:49 07/09/19 13:49 07/09/19 13:49 07/09/19 13:49 - Notes Notes: PHYSICAL EXAMINATION: GENERAL: Well-appearing, well-nourished and in no acute distress. A&Ox4. HEAD: Atraumatic, normocephalic. EYES: Pupils equal round and reactive to light, extraocular movements intact, sclera anicteric, conjunctiva are normal. ENT: Nares patent and without discharge. oropharynx clear without exudates. No tonsilar hypertrophy or erythema. Moist mucous membranes. NECK: Normal range of motion, supple without lymphadenopathy LUNGS: Breath sounds clear to auscultation bilaterally and equal. No wheezes rales or rhonchi. HEART: Regular rate and rhythm without murmurs, rubs, gallops. ABDOMEN: Soft, nondistended abdomen. No guarding, no rebound. Normal bowel sounds present. No CVA tenderness bilaterally. No focal tenderness noted. Musculoskeletal: FROM to passive/active. Strength 5+/5. Extremities: No cyanosis, clubbing, or edema b/l. Peripheral pulses 2+. Capillary refill less than 3 seconds. NEUROLOGICAL: Pt has had speech issues since his cva. Cranial nerves otherwise grossly intact. PSYCH: Normal mood, normal affect. SKIN: Warm, Dry, normal turgor, no rashes or lesions noted. Course - Re-evaluation Re-evalutation: 07/09/19 22:39 Patient is a 64-year-old male who presents with leukocytosis, acute UTI, JAYLEN. Patient has received fluids and medications. I did speak with Dr. Escobar who agrees to admit patient to IMCU. He would like us to place a Tineo catheter in place consult for Dr. Servin. Pt in agreement with admit/plan. - Vital Signs Vital signs: Temp Pulse Resp BP Pulse Ox 99.4 F 107 H 23 H 111/65 96 07/09/19 20:56 07/09/19 18:26 07/09/19 21:05 07/09/19 20:09 07/09/19 22:00 - Laboratory Result Diagrams: 07/09/19 18:56 07/09/19 18:56 Laboratory results interpreted by me: 07/09/19 07/09/19 07/09/19 14:15 18:56 18:56 WBC 44.8 H* RDW 14.8 H Plt Count 79 L Seg Neuts % (Manual) 91 H Lymphocytes % (Manual) 3 L Abs Neuts (Manual) 42.1 H Sodium 134.3 L Chloride 93 L BUN 78 H Creatinine 4.38 H Est GFR ( Amer) 17 L Est GFR (MDRD) Non-Af 14 L Glucose 135 H Direct Bilirubin 0.5 H AST 712 H Urine Protein >=500 H Urine Blood MODERATE H Ur Leukocyte Esterase LARGE H Discharge - Discharge Clinical Impression: JAYLEN (acute kidney injury), Acute UTI (urinary tract infection) Leukocytosis Qualifiers: Leukocytosis type: bandemia Qualified Code(s): D72.825 - Bandemia Condition: Stable Disposition: ADMITTED INPATIENT Admitting Provider: Saad Unit Admitted: IMCU Referrals: JOSE ALEJANDRO ESCOBAR MD [Primary Care Provider] - Follow up as needed
[2019-07-09] MEDS ORDERED: ACETAMINOPHEN 325 MG TABLET PO ONE (20:57)
--- NOTE | 2019-07-09 21:50 | RADIOLOGY REPORT (SQ) ---
EXAM DESCRIPTION: XR CHEST 1 VIEW COMPLETED DATE/TME: 07/09/2019 20:48 CLINICAL HISTORY: 64 years, Male, tachycardia COMPARISON: X-ray chest 05/09/2019 NUMBER OF VIEWS: TECHNIQUE: LIMITATIONS: None. FINDINGS: No evidence of pulmonary infiltrate or pleural effusion. The heart and mediastinum are unremarkable. Pulmonary vascularity appears normal. There are atherosclerotic changes of the thoracic aorta. There is no significant change, as compared with the prior x-ray(s). IMPRESSION: No acute finding. copyright 2010 [employer]- All Rights Reserved
[2019-07-09 22:15] LABS: INTERNATIONAL RATION (INR) 1.16; PARTIAL THROMBOPLASTIN TIME 31.9 SEC (23.5-35.8); PROTHROMBIN TIME 14.8 SEC (11.4-15.4)
[2019-07-09] MEDS ORDERED: OXYCODONE-ACETAMINOPHEN 5-325 MG TABLET PO PRN (22:38)
[2019-07-09] MEDS ORDERED: ACETAMINOPHEN 325 MG TABLET PO PRN (22:38)
[2019-07-09] MEDS ORDERED: ONDANSETRON HCL INJ/PF 4 MG/2 ML SDV IV PRN (22:38)
[2019-07-09] MEDS ORDERED: IPRATROPIUM/ALBUTEROL 0.5-2.5 MG/3 ML AMPUL NEB PRN (22:38)
[2019-07-09] MEDS ORDERED: NORMAL SALINE 1000 ML 1,000 ML IV PRN (22:38)
[2019-07-09] MEDS ORDERED: FAMOTIDINE INJ/PF 20 MG/2 ML SDV IV SCH (22:45)
[2019-07-09 23:29] LABS: ANION GAP 17 (5-19); BLOOD UREA NITROGEN 84 mg/dL (7-20); CALCIUM 8.2 mg/dL (8.4-10.2); CARBON DIOXIDE 24 mmol/L (22-30); CHLORIDE 91 mmol/L (98-107); GLUCOSE 86 mg/dL (75-110); POTASSIUM 4.3 mmol/L (3.6-5.0)
--- NOTE | 2019-07-10 00:11 | RADIOLOGY REPORT (SQ) ---
EXAM DESCRIPTION: US ABDOMEN LIMITED COMPLETED DATE/TME: 07/09/2019 22:42 CLINICAL HISTORY: 64 years, Male, elevated LFT COMPARISON: CT performed on 02/14/2019 TECHNIQUE: Axial 2-D grayscale images of the abdomen were acquired. Doppler was utilized. LIMITATIONS: None. FINDINGS: Visualized portions of the pancreas appear normal in echogenicity. However, the pancreatic body and tail were obscured. Abdominal aortic measurements are as follows: Proximal: 2.1 cm Mid: 1.3 cm Distal: Not visualized Liver is diffusely echogenic. It measures 16.4 cm in length. Antegrade flow is documented within the main portal vein. Gallbladder wall thickness measures 4 mm. A large gallstone is noted within the gallbladder lumen. Sonographic Perez sign was negative. No significant pericholecystic free fluid. Common bile duct diameter measures 2 mm. Right kidney measures 10.4 cm in length. No significant free fluid is identified within the imaged abdomen. IMPRESSION: Cholelithiasis with mild gallbladder wall thickening, nonspecific. No other ancillary evidence of cholecystitis. If there is continued concern, consider HIDA scan. Echogenic liver, suggestive of hepatic steatosis. copyright 2010 [employer]- All Rights Reserved
--- NOTE | 2019-07-10 00:19 | RADIOLOGY REPORT (SQ) ---
EXAM DESCRIPTION: CT ABDOMEN PELVIS WITHOUT IV CONTRAST COMPLETED DATE/TME: 07/09/2019 00:00 CLINICAL HISTORY: 64 years, Male, renal failure COMPARISON: Prior study from 02/14/2019 TECHNIQUE: Noncontrast CT of the abdomen/pelvis was performed. Coronal and sagittal reformations were created. Images stored on PACS. All CT scanners at this facility use dose modulation, iterative reconstruction, and/or weight based dosing when appropriate to reduce radiation dose to as low as reasonably achievable (ALARA). [facility]: Dose Right [facility]: CareDose [facility]: Dose Right [facility]: Teradose 4D [facility]: Vungle LIMITATIONS: None. FINDINGS: Limited evaluation of the lower chest reveals bibasilar dependent atelectasis. Emphysematous changes are noted about both lung bases as well. Calcifications are noted about the coronary vessels and thoracic aorta. The liver, spleen, pancreas, gallbladder, and both adrenal glands appear normal. 4 mm calculus is noted about the lower pole of the right kidney. The left kidney appears edematous. There is mild left hydroureter as a result of a 4 mm calculus located within the distal left ureter.. Urinary bladder is partially collapsed, thus its evaluation is limited. Small and large bowel are normal in caliber. No evidence of bowel obstruction. Appendix is not visualized; however, no pericecal inflammatory changes are appreciated. Calcifications are evident about the abdominal aorta and proximal iliac vessels. No drainable fluid collections are identified. There is a mildly prominent luke hepatic lymph node on image 33 of series 3 which appears unchanged from 02/14/2019, nonspecific. Bone windows show no destructive osseous lesions. There are postsurgical changes of posterior fusion spanning the L3-S1 vertebral bodies with interbody spacer placement at L4-L5 and L5-S1. IMPRESSION: 4 mm calculus located within the distal left ureter with associated mild left hydronephrosis. Nonobstructive right nephrolithiasis. TECHNICAL DOCUMENTATION: Quality ID # [id number]: Final reports with documentation of one or more dose reduction techniques (e.g., Automated exposure control, adjustment of the mA and/or kV according to patient size, use of iterative reconstruction technique) copyright 2010 [employer]- All Rights Reserved
[2019-07-10] MEDS ORDERED: INFLUENZA QUAD (6MOS+) 2019-20 VAC 0.5 ML SYR IM ONE (00:27)
[2019-07-10] MEDS ORDERED: VANCOMYCIN HCL INJ 1000 MG VIAL IV ONE (02:00)
[2019-07-10] MEDS ORDERED: MEROPENEM 1 GM VIAL IV ONE (02:00)
[2019-07-10] MEDS ORDERED: NORMAL SALINE 1000 ML 1,000 ML IV PRN (02:00)
[2019-07-10 04:55] LABS: HEMATOCRIT 38.5 % (37.9-51.0); HEMOGLOBIN 12.8 g/dL (13.5-17.0); MEAN CORPUSCULAR HEMOGLOBIN 30.2 pg (27.0-33.4); MEAN CORPUSCULAR HGB CONC 33.3 g/dL (32.0-36.0); MEAN CORPUSCULAR VOLUME 91 fl (80-97); RED BLOOD COUNT 4.25 10^6/uL (4.35-5.55); RED CELL DISTRIBUTION WIDTH 14.7 % (11.5-14.0)
[2019-07-10 05:00] LABS: WHITE BLOOD COUNT 31.5 10^3/uL (4.0-10.5)
[2019-07-10 05:20] LABS: ABSOLUTE LYMPHOCYTES# (MANUAL) 1.9 10^3/uL (0.5-4.7); ABSOLUTE MONOCYTES # (MANUAL) 0.3 10^3/uL (0.1-1.4); BASOPHILS % (MANUAL) 0 % (0-2); EOSINOPHILS % (MANUAL) 0 % (0-6); LYMPHOCYTES % (MANUAL) 6 % (13-45); MONOCYTES % (MANUAL) 1 % (3-13); SEGMENTED NEUTROPHILS % (MAN) 93 % (42-78); TOTAL CELLS COUNTED 100
[2019-07-10 05:23] LABS: ANISOCYTOSIS SLIGHT; BURR CELLS SLIGHT; OVALOCYTES SLIGHT; POIKILOCYTOSIS SLIGHT; POLYCHROMASIA SLIGHT; TOXIC GRANULATION 1+; TOXIC VACUOLATION PRESENT
[2019-07-10 05:24] LABS: PLATELET COMMENT DECREASED; PLATELET COUNT 57 10^3/uL (150-450)
[2019-07-10 06:12] VITALS: BP 122/74
[2019-07-10] MEDS ORDERED: MORPHINE SULFATE 10 MG/ML INJ IV ONE (06:20)
[2019-07-10] MEDS ORDERED: CEFEPIME 1 GM/D5W RTU 1 GM/50 ML RTUPB IV SCH (10:00)
[2019-07-10] MEDS ORDERED: DOCUSATE SODIUM 100 MG CAPSULE PO SCH (10:00)
[2019-07-10 10:14] LABS: PATH REVIEW PATHOLOGIST REVIEWED
--- NOTE | 2019-07-26 15:52 | Progress Note ---
Provider Note Provider Note: I did not see the patient and ER physician saw the patient in transfer the patient
== END 2019-07-10 06:40 | disposition short-term general hospital (02) | DRG 683 ==
LOC: ER 13:35 → EH 22:52
PROVIDERS: ADMIT Family Medicine; ATTEND Family Medicine
DX: N17.9 Acute kidney failure, unspecified (principal); N20.1 Calculus of ureter; N39.0 Urinary tract infection, site not specified; I10 Essential (primary) hypertension; R25.2 Cramp and spasm; F17.200 Nicotine dependence, unspecified, uncomplicated; F12.10 Cannabis abuse, uncomplicated; J45.909 Unspecified asthma, uncomplicated; M19.90 Unspecified osteoarthritis, unspecified site; I69.928 Other speech and language deficits following unspecified cerebrovascular disease; Z88.7 Allergy status to serum and vaccine; Z87.442 Personal history of urinary calculi
CPT/HCPCS: 36415; 71045; 74176; 76705; 80053; 80307; 81001; 83605; 83690; 85025; 85610; 85730; 87040; 87077; 87086; 87088; 87150; 87186; 96365; 96375; 99285; J0696; J2185; J2270; J2405; J3360; J3370; J7030; S0028